=== PATIENT | female | born 1980 | race Caucasian/White ===

== ENCOUNTER 2018-08-09 14:08 | Inpatient (IN) ==
[2018-08-09] MEDS ORDERED: NORMAL SALINE 1,000 ML IV ONE (14:16)
[2018-08-09] MEDS ORDERED: PROMETHAZINE HCL 25 MG SUPP.RECT RC SCH (14:30)
[2018-08-09 15:42] LABS: Hemoglobin 10.6 gm/dL (12.5-16.0); Mean Cell Volume 71.7 fl (78-100); Mean Corpuscular Hemoglobin 21.1 pg (27-31); Mean Corpuscular Hgb Conc 29.4 g/dl (32-36); Mean Platelet Volume 9.8 fl (8-12.5); Neutrophil # 14.2 K/mm3 (1.3-6.0); Neutrophil % 79.4 % (42-75.0); Platelet Count 355 K/mm3 (150-450); Red Blood Count 5.02 M/mm3 (4.2-5.4); White Blood Count 17.9 K/mm3 (4.0-10.5)
[2018-08-09 16:12] LABS: Albumin * 3.6 gm/dl (3.4-5.0); BUN/Creatinine Ratio 13.6 (9.0-21.6); Bilirubin, Total 0.3 mg/dL (0.0-1.1); Ca. Corrected For Albumin 9.3 mg/dL (8.4-10.2); Calcium * 9.3 mg/dL (7.9-10.9); Carbon Dioxide 28.3 mmol/L (24-32.6); Potassium 4.3 mmol/L (3.4-4.6)
--- NOTE | 2018-08-09 16:26 | ANES ---
Anesthesia Procedure Note Procedure Note: ANESTHESIA PROCEDURE NOTE Date of Procedure: 08/09/2018. Time of procedure: 1610. Performed by: Abhi Marie CRNA Insurance Claims Clerk: None. Preprocedure diagnosis: Difficult IV access. Post procedure diagnosis: Same. Procedure: Attempted Peripheral vein IV insertion. Indications: This is a 37-year-old female who is in need of IV access. Findings: See below. Details of the procedure: With ultrasound guidance Skin over the intended target site was cleansed with alcohol. A 22-gauge IV catheter was inserted into a right forearm vein. Could not however thread the catheter into the vein. Another attempt was made at left forearm vein without success. EBL: Minimal. Fluids: N/A. Specimen: N/A. Post procedure condition: The patient tolerated the procedure well. No complications were noted. Thank you for this consultation. Abhi Marie CRNA
--- NOTE | 2018-08-09 17:31 | ANES ---
Anesthesia Procedure Note Procedure Note: ANESTHESIA PROCEDURE NOTE Date of Procedure: [08/09/2018 Time of procedure: 1645. Performed by: RODOLFO Florian CRNA, MSN Preprocedure diagnosis: Colitis, lack of venous access. Post procedure diagnosis: Same. Procedure: Venipuncture for IV access. Indications: Colitis, lack of IV access. Findings: Ms. Vernon has a long history of difficult venous access. She presents today with colitis requiring antibiotic therapy. Previous attempts with ultrasound-guided venous access were unsuccessful earlier. After warming her extremities, very little potential access sites were noted. With the use of a lighted vein finder there appeared to be adequate vein in the left foot. Details of the procedure: The patient was prepped with Betadine and alcohol, 0.1 mL of 1% lidocaine solution was injected at the intended IV site. A #24-gauge IV was initiated, flushed and secured. EBL: Minimal. Fluids: N/A. Specimen: N/A. Post procedure condition: The patient tolerated the procedure well. No complications were noted. Thank you for this consultation. Reji Bowens CRNA, ARNP, MSN
[2018-08-09] MEDS: HYDROmorphone HCL 1 MG/ML DISP.SYRIN IV PRN ×3 (17:38→23:54)
[2018-08-09] MEDS: ONDANSETRON HCL/PF 2 MG/ML VIAL IV SCH ×2 (17:40→23:48)
[2018-08-09] MEDS: diphenhydrAMINE HCL 50 MG/ML VIAL IV SCH ×2 (17:43→23:45)
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
--- NOTE | 2018-08-09 19:44 | OR ---
Operative Report - Dictated Report Narrative: Date of Service:08/09/18 Procedure: Right internal jugular central venous line Pre-procedure diagnosis: Need for IV access Post-procedure diagnosis: Same Surgeon: Dr. Josi Miles Anesthesia: Local Indication for procedure: Monique is a very pleasant 37-year-old female with Crohn's disease, who has very poor IV access. A PICC line was attempted earlier which was unsuccessful. Multiple peripheral IVs have been attempted which were unsuccessful. Description of procedure: After appropriate informed consent was obtained the patient was prepped and draped in the usual sterile fashion. Ultrasound guidance was used to visualize the right internal jugular vein. This was adjacent to the common carotid artery which was noncompressible. Local anesthetic was injected. A Cook needle was inserted, blood was aspirated however the wire would not thread through the Cook needle. The Cook needle was removed, and a larger Cook needle was used. The wire threaded easily. The Seldinger technique was used. A small skin neck was made adjacent to the wire. The dilator sheath was placed over the wire. The catheter had been previously flushed, was then placed over the wire using the Seldinger technique. It threaded easily. It was placed to 18 cm. It was completely removed. Needleless ports were placed on the end of each port site. Each of the ports was aspirated and flushed. They flushed easily. The line was sutured in place using the butterfly device. The skin was cleansed and a Tegaderm was applied. Complications: none Specimens to pathology: none Estimated blood loss: Minimal Disposition: Await chest x-ray
[2018-08-09 20:31] LABS: Urine Bilirubin Negative (NEGATIVE); Urine Blood Negative /ul (NEGATIVE); Urine Ketone Negative (NEGATIVE); Urine Nitrite Negative (NEGATIVE); Urine Protein Negative (NEGATIVE); Urine Urobilinogen Normal (NORMAL)
[2018-08-09 20:43] LABS: Urine Appearance Clear (CLEAR); Urine Color Pale Yellow
[2018-08-09 20:44] LABS: Urine Bacteria None Seen; Urine Hyaline Cast 0-5 /LPF; Urine RBC None Seen /hpf (0-5); Urine WBC None Seen /hpf (0-5)
[2018-08-09] MEDS ORDERED: HEPARIN SOD.,PORCINE 100 UNITS/ML IV SCH (20:45)
[2018-08-09] MEDS: MEROPENEM 1 GM in NORMAL SALINE 100 ML IV SCH (20:57)
[2018-08-09] MEDS: SACCHAROMYCES BOULARDII 250 MG CAPSULE PO SCH (21:02)
[2018-08-09] MEDS: chlorproMAZINE HCL 10 MG in NORMAL SALINE 50 ML IV SCH ×3 (21:07→23:52)
[2018-08-09] MEDS: METHYLPREDNISOLONE SOD SUCC/PF 40 MG/ML VIAL IV SCH (21:23)
[2018-08-09] MEDS: POTASSIUM CHLORIDE 10 MEQ in NORMAL SALINE 1,000 ML IV SCH (21:32)
[2018-08-10] MEDS: MEROPENEM 1 GM in NORMAL SALINE 100 ML IV SCH ×3 (02:22→16:52)
[2018-08-10] MEDS: HYDROmorphone HCL 1 MG/ML DISP.SYRIN IV PRN ×9 (02:28→21:53)
[2018-08-10] MEDS: diphenhydrAMINE HCL 50 MG/ML VIAL IV SCH ×4 (04:25→21:58)
[2018-08-10] MEDS: ONDANSETRON HCL/PF 2 MG/ML VIAL IV SCH ×4 (04:27→22:05)
[2018-08-10] MEDS: METHYLPREDNISOLONE SOD SUCC/PF 40 MG/ML VIAL IV SCH ×2 (04:35→15:02)
[2018-08-10] MEDS: chlorproMAZINE HCL 10 MG in NORMAL SALINE 50 ML IV SCH (04:37)
[2018-08-10 05:51] LABS: Hematocrit 33.7 % (37.0-47.0); Mean Cell Volume 71.1 fl (78-100); Mean Corpuscular Hemoglobin 21.1 pg (27-31); Mean Corpuscular Hgb Conc 29.7 g/dl (32-36); Mean Platelet Volume 10.1 fl (8-12.5); Neutrophil % 93.2 % (42-75.0); Platelet Count 359 K/mm3 (150-450); Red Blood Count 4.74 M/mm3 (4.2-5.4); Red Cell Distribution Width 17.9 % (11.5-14.0); White Blood Count 11.8 K/mm3 (4.0-10.5)
[2018-08-10 06:14] LABS: Albumin * 3.2 gm/dl (3.4-5.0); Anion Gap 16.6 mmol/L (6.8-13.8); BUN/Creatinine Ratio 15.1 (9.0-21.6); Bilirubin, Total 0.3 mg/dL (0.0-1.1); Ca. Corrected For Albumin 9.1 mg/dL (8.4-10.2); Calcium * 8.8 mg/dL (7.9-10.9); Carbon Dioxide 22.3 mmol/L (24-32.6); Potassium 4.9 mmol/L (3.4-4.6)
[2018-08-10] MEDS: chlorproMAZINE HCL 20 MG in NORMAL SALINE 50 ML IV SCH ×5 (07:28→23:01)
[2018-08-10] MEDS: POTASSIUM CHLORIDE 10 MEQ in NORMAL SALINE 1,000 ML IV SCH ×2 (07:58→18:42)
[2018-08-10] MEDS: SACCHAROMYCES BOULARDII 250 MG CAPSULE PO SCH ×2 (10:10→21:55)
[2018-08-10] MEDS: HEPARIN SOD.,PORCINE 100 UNITS/ML IV SCH ×2 (10:15→21:55)
--- NOTE | 2018-08-10 12:08 | PN ---
Subjective - Date and Time Seen Date: 08/10/18 Time: 06:45 Subjective Narrative: Patient has not vomited since yesterday evening. She is having dry heaving still, the most recently an hour ago. Her abdominal pain is about the same. There is still bright red blood in her bowel movement. There has been no hematemesis. Overall feet she feels somewhat better now. Objective - Review of Systems Generalized/Overall Review: Reports: Weakness, Malaise EENTM: Denies: Eye Pain, Blurred Vision Respiratory: Denies: Cough, Shortness of Breath Cardiac: Denies: Chest Pain, Edema Abdominal: Reports: Nausea, Vomiting, Abdominal Pain, Diarrhea, Bright blood from rectum Genitourinary Symptoms: Denies: Burning, Urgency Musculoskeletal Complaints: Denies: Joint Pain, Back Pain Neurological: Reports: Anxiety, Depressed. Denies: Headache Skin: Denies: Dryness, Lesions, Rash Endocrine: Denies: Intolerance to Cold, Intolerance to Heat Misc: All systems neg except as marked - Vitals Vitals: Last Vital Signs Temp 36.8 C 08/10/18 10:49 Pulse 69 08/10/18 10:49 Resp 16 08/10/18 10:49 BP 123/61 08/10/18 10:49 Pulse Ox 96 08/10/18 10:49 - Abnormal Lab Findings Abnormal Lab Findings: Abnormal Lab Results 08/09/18 08/09/18 08/09/18 Range/Units 15:30 15:30 19:40 WBC 17.9 H (4.0-10.5) K/mm3 Hgb 10.6 L (12.5-16.0) gm/dL Hct 36.0 L (37.0-47.0) % MCV 71.7 L (78-100) fl MCH 21.1 L (27-31) pg MCHC 29.4 L (32-36) g/dl RDW 18.0 H (11.5-14.0) % Immature Gran % (Auto) 1.80 H (0.001-0.429) % Immature Gran # (Auto) 0.32 H (0.000-0.0310) K/mm3 Neutrophils % 79.4 H (42-75.0) % Lymphocytes % 8.3 L (20-51) % Neutrophils # 14.2 H (1.3-6.0) K/mm3 Lymphocytes # 1.48 L (1.5-3.5) k/mm3 Monocytes # 1.5 H (0.0-1.0) k/mm3 Potassium (3.4-4.6) mmol/L Carbon Dioxide (24-32.6) mmol/L Anion Gap 14.0 H (6.8-13.8) mmol/L Random Glucose (70-110) mg/dL Albumin (3.4-5.0) gm/dl Urine pH 8.0 H (5.0-7.0) pH Hyaline Casts 0-5 H (NONE) /LPF 08/10/18 08/10/18 Range/Units 05:40 05:40 WBC 11.8 H D (4.0-10.5) K/mm3 Hgb 10.0 L (12.5-16.0) gm/dL Hct 33.7 L (37.0-47.0) % MCV 71.1 L (78-100) fl MCH 21.1 L (27-31) pg MCHC 29.7 L (32-36) g/dl RDW 17.9 H (11.5-14.0) % Immature Gran % (Auto) 0.80 H (0.001-0.429) % Immature Gran # (Auto) 0.10 H (0.000-0.0310) K/mm3 Neutrophils % 93.2 H (42-75.0) % Lymphocytes % 5.1 L (20-51) % Neutrophils # 11.0 H (1.3-6.0) K/mm3 Lymphocytes # 0.60 L (1.5-3.5) k/mm3 Monocytes # (0.0-1.0) k/mm3 Potassium 4.9 H (3.4-4.6) mmol/L Carbon Dioxide 22.3 L (24-32.6) mmol/L Anion Gap 16.6 H (6.8-13.8) mmol/L Random Glucose 149 H D (70-110) mg/dL Albumin 3.2 L (3.4-5.0) gm/dl Urine pH (5.0-7.0) pH Hyaline Casts (NONE) /LPF - Exam Constitutional: Present: Alert, Oriented x3, Cooperative, Well developed, Well nourished ENT Exam: Present: normal ENT inspection, hearing grossly normal Neck: Present: non-tender, full range of motion, normal inspection. Absent: lymphadenopathy (R), lymphadenopathy (L), thyromegaly Breasts: Present: Exam deferred Respiratory: Present: lungs clear, no respiratory distress Cardiovascular/Chest: Present: normal peripheral pulses, regular rate, rhythm, no chest tenderness, no edema, no gallop, no JVD, no murmur Abdomen: Present: Normal bowel sounds, soft, no hepatospenomegaly, no masses, tender, guarding, rebound tenderness. Absent: rigidity /Rectal: Present: Exam deferred Extremity: Present: normal range of motion, non-tender, normal inspection, no calf tenderness Skin Exam: Present: normal color, warm/dry, no cyanosis Lymphatic: Present: no adenopathy Neurologic: Present: abnormal gait, motor weakness Appearance: Present: appropriate appearance, appropriate insight, neat, no memory impairment Eye contact: Present: cooperative, good eye contact, normal speech Thoughts: Present: normal thought pattern Assessment/Plan Plan Narrative: Her lab work shows marked improvement from yesterday. Her hemoglobin has dropped about 2 g, consistent with her earlier diagnosis of dehydration. Her white blood count has dropped. Her wound looks somewhat better today. Dr. Miles obtained IV access through a central line last evening. She has had no side effects to the chlorpromazine. We started with a very low dose, but because she still retching we will increase the dose from 10-20 mg. I have been considering a referral to the [facility], but have thus far not because she had been getting better. We will continue current IV fluids and IV medications. We will repeat blood work in the morning. If I decide she needs a referral to the [place], I will discuss that with her tomorrow morning. If things change before that, we will address that change. - Problems/Diagnosis (1) Abdominal pain Problem: Acute (2) Crohn's colitis Problem: Chronic Qualifiers: Digestive disease complication type: unspecified complication Qualified Code(s): K50.119 - Crohn's disease of large intestine with unspecified complications (3) Vomiting Problem: Acute Qualifiers: Vomiting type: unspecified Vomiting Intractability: intractable Nausea presence: with nausea Qualified Code(s): R11.2 - Nausea with vomiting, unspecified (4) Dehydration Problem: Acute (5) Difficult intravenous access Problem: Acute (6) Failure of outpatient treatment Problem: Acute (7) Hematochezia Problem: Acute (8) Diarrhea Problem: Chronic Qualifiers: (9) Open wound anterior abdominal wall Problem: Chronic Qualifiers: Encounter type: subsequent encounter Qualified Code(s): S31.109D - Unspecified open wound of abdominal wall, unspecified quadrant without penetration into peritoneal cavity, subsequent encounter (10) Wound infection after surgery Problem: Acute (11) History of staph infection Problem: Chronic
--- NOTE | 2018-08-10 12:09 | PN ---
Progess Note - Interim Date: 08/10/18 Time: 12:08 Narrative: 08/10/18 12:[address] Miles and I spoke directly. She was concerned about mesh infection, which I think is very reasonable. She was also concerned about a fistula. We have not seen her on either CAT scan, but that also very reasonable. This weighs me more in the direction of discussing with her tomorrow referral to the [facility].
[2018-08-10] MEDS ORDERED: metroNIDAZOLE/SODIUM CHLORIDE 500 MG/100 ML BAG IV SCH (15:15)
[2018-08-10] MEDS: VANCOMYCIN HCL 1.25 GM in DEXTROSE 5 % IN WATER 250 ML IV SCH ×2 (17:24)
--- NOTE | 2018-08-10 17:53 | PN ---
Tran Note - Interim Date: 08/10/18 Time: 17:52 Narrative: 08/10/18 17:52 I just completed a 20 minute conversation with Monique, her sister and her spouse. Please see previous notes, where I mentioned referral to a higher level of care, and that she may actually require multispecialty care. The concern at the present time is mesh infection or even a intra-abdominal fistula. All other questions were answered to their satisfaction. The plan will be to work on referral tomorrow morning. She like to try clear liquids. She has no vomiting whatsoever today. We will start clear liquids.
[2018-08-11] MEDS: HYDROmorphone HCL 1 MG/ML DISP.SYRIN IV PRN ×9 (00:30→21:56)
[2018-08-11] MEDS: MEROPENEM 1 GM in NORMAL SALINE 100 ML IV SCH ×3 (00:31→16:34)
[2018-08-11] MEDS: chlorproMAZINE HCL 20 MG in NORMAL SALINE 50 ML IV SCH ×6 (03:22→22:15)
[2018-08-11] MEDS: diphenhydrAMINE HCL 50 MG/ML VIAL IV SCH ×4 (03:26→21:57)
[2018-08-11] MEDS: METHYLPREDNISOLONE SOD SUCC/PF 40 MG/ML VIAL IV SCH ×2 (03:29→16:26)
[2018-08-11] MEDS: ONDANSETRON HCL/PF 2 MG/ML VIAL IV SCH ×4 (03:32→21:59)
[2018-08-11] MEDS: POTASSIUM CHLORIDE 10 MEQ in NORMAL SALINE 1,000 ML IV SCH (04:59)
[2018-08-11] MEDS: VANCOMYCIN HCL 1.25 GM in DEXTROSE 5 % IN WATER 250 ML IV SCH ×4 (05:00→17:44)
[2018-08-11] MEDS ORDERED: NORMAL SALINE 1,000 ML IV SCH (06:17)
--- NOTE | 2018-08-11 06:41 | PN ---
Subjective - Date and Time Seen Date: 08/11/18 Time: 06:35 Subjective Narrative: Patient has not vomited since the night before last. She is taking clear liquids well, but this morning she backed off of that because she became nauseated. Her abdominal pain is about the same. There is still bright red blood in her bowel movement. There has been no hematemesis. Overall feet she feels about the same now. I saw her this morning with Ketty from case management. She denies fever chills or sweats. She uses IV Dilaudid about every 2 hours. She rates her pain with that medication 5-8. The pain is from her abdomen, mostly midline and somewhat to the right. Objective - Review of Systems Generalized/Overall Review: Reports: Malaise EENTM: Denies: Eye Pain, Blurred Vision Respiratory: Denies: Cough, Shortness of Breath Cardiac: Denies: Chest Pain, Edema Abdominal: Reports: Nausea, Abdominal Pain, Diarrhea, Bright blood from rectum Genitourinary Symptoms: Denies: Burning, Urgency Musculoskeletal Complaints: Denies: Joint Pain, Back Pain Neurological: Reports: Depressed. Denies: Headache, Anxiety Skin: Denies: Dryness, Lesions, Rash Endocrine: Denies: Intolerance to Cold, Intolerance to Heat Misc: All systems neg except as marked - Vitals Vitals: Last Vital Signs Temp 36.6 C 08/11/18 03:00 Pulse 95 08/11/18 03:00 Resp 16 08/11/18 03:00 BP 152/82 H 08/11/18 03:00 Pulse Ox 98 08/11/18 03:00 - Exam Constitutional: Present: Alert, Oriented x3, Cooperative, Well developed, Well nourished, No distress ENT Exam: Present: normal ENT inspection, hearing grossly normal Neck: Present: normal inspection. Absent: limited range of motion, thyromegaly Breasts: Present: Exam deferred Respiratory: Absent: lungs clear, respiratory distress Cardiovascular/Chest: Present: regular rate, rhythm, no gallop, no JVD, no murmur, edema - Trace edema both lower extremities Abdomen: Present: Normal bowel sounds, soft, no rebound tenderness, no hepatospenomegaly, no masses, guarding, other - Open abdominal wound looks about the same. /Rectal: Present: Exam deferred Extremity: Present: normal range of motion, normal inspection, no calf tenderness Skin Exam: Present: normal color, warm/dry, no cyanosis Lymphatic: Present: no adenopathy Neurologic: Present: depressed affect. Absent: motor weakness Appearance: Present: appropriate appearance, appropriate insight, neat, no memory impairment Eye contact: Present: cooperative, good eye contact, normal speech Thoughts: Present: normal thought pattern Assessment/Plan Plan Narrative: Blood pressure has gone up slightly. She has a positive fluid balance she's taking oral well. We will cut back on the IV fluid rate. Potassium slightly high yesterday we will remove the potassium from IV. Otherwise we will continue her current treatment. We will now begin looking for a higher level of care transfer. We need at least a flight kitchen manager to cares for Crohn's patients and a surgeon who was familiar with Crohn's related surgeries. I discussed this again with the patient and she agrees. I also discussed it with her and her family last night. - Problems/Diagnosis (1) Abdominal pain Problem: Acute (2) Crohn's colitis Problem: Chronic Qualifiers: Digestive disease complication type: unspecified complication Qualified Code(s): K50.119 - Crohn's disease of large intestine with unspecified complications (3) Vomiting Problem: Acute Qualifiers: Vomiting type: unspecified Vomiting Intractability: intractable Nausea presence: with nausea Qualified Code(s): R11.2 - Nausea with vomiting, unspecified (4) Dehydration Problem: Acute (5) Difficult intravenous access Problem: Acute (6) Failure of outpatient treatment Problem: Acute (7) Hematochezia Problem: Acute (8) Diarrhea Problem: Chronic Qualifiers: (9) Open wound anterior abdominal wall Problem: Chronic Qualifiers: Encounter type: subsequent encounter Qualified Code(s): S31.109D - Unspecified open wound of abdominal wall, unspecified quadrant without penetration into peritoneal cavity, subsequent encounter (10) Wound infection after surgery Problem: Acute (11) History of staph infection Problem: Chronic
[2018-08-11] MEDS ORDERED: NORMAL SALINE 1,000 ML IV PRN (06:45)
[2018-08-11 07:18] LABS: Hematocrit 31.5 % (37.0-47.0); Hemoglobin 9.6 gm/dL (12.5-16.0); Mean Cell Volume 70.9 fl (78-100); Mean Corpuscular Hemoglobin 21.6 pg (27-31); Mean Corpuscular Hgb Conc 30.5 g/dl (32-36); Mean Platelet Volume 10.2 fl (8-12.5); Platelet Count 331 K/mm3 (150-450); Red Blood Count 4.44 M/mm3 (4.2-5.4); Red Cell Distribution Width 18.1 % (11.5-14.0); White Blood Count 25.2 K/mm3 (4.0-10.5)
[2018-08-11 07:26] LABS: Total Cells Counted 100
[2018-08-11 07:33] LABS: Band 2 % (0-2.0); Dohle Bodies 2+; Hypochromia 1+; Immature Granulocyte 1 (0-1); Lymphocyte 4 % (20-51); Monocyte 1 % (0-9); Neutrophil 92 % (42-75); Neutrophil # 23.2 K/mm3 (1.3-6.0); Platelet Estimate Normal (NORMAL)
[2018-08-11 07:39] LABS: Albumin * 3.2 gm/dl (3.4-5.0); Anion Gap 10.9 mmol/L (6.8-13.8); BUN/Creatinine Ratio 14.4 (9.0-21.6); Bilirubin, Total 0.2 mg/dL (0.0-1.1); Ca. Corrected For Albumin 9.1 mg/dL (8.4-10.2); Calcium * 8.8 mg/dL (7.9-10.9); Carbon Dioxide 27.6 mmol/L (24-32.6); Potassium 4.5 mmol/L (3.4-4.6); Total Protein 6.8 gm/dL (6.2-8.2)
[2018-08-11] MEDS: SACCHAROMYCES BOULARDII 250 MG CAPSULE PO SCH ×2 (09:31→21:56)
[2018-08-11] MEDS: HEPARIN SOD.,PORCINE 100 UNITS/ML IV SCH ×2 (09:40→21:57)
[2018-08-12] MEDS: chlorproMAZINE HCL 20 MG in NORMAL SALINE 50 ML IV SCH ×3 (02:05→12:10)
[2018-08-12] MEDS: MEROPENEM 1 GM in NORMAL SALINE 100 ML IV SCH ×2 (02:05→09:51)
[2018-08-12] MEDS: HYDROmorphone HCL 1 MG/ML DISP.SYRIN IV PRN ×5 (02:12→12:35)
[2018-08-12] MEDS: diphenhydrAMINE HCL 50 MG/ML VIAL IV SCH ×2 (04:29→09:43)
[2018-08-12] MEDS ORDERED: VANCOMYCIN HCL LEVEL XX ONE (04:30)
[2018-08-12] MEDS: METHYLPREDNISOLONE SOD SUCC/PF 40 MG/ML VIAL IV SCH (04:30)
[2018-08-12] MEDS: ONDANSETRON HCL/PF 2 MG/ML VIAL IV SCH ×2 (04:32→09:38)
[2018-08-12] MEDS: VANCOMYCIN HCL 1.25 GM in DEXTROSE 5 % IN WATER 250 ML IV SCH ×2 (05:18)
--- NOTE | 2018-08-12 07:38 | PN ---
Subjective - Date and Time Seen Date: 08/12/18 Time: 06:00 Subjective Narrative: Patient has not vomited since 2 nights ago. She is taking clear liquids well. Her abdominal pain is about the same. There is less bright red blood in her bowel movement. She has similar amounts of bleeding in the past due to her Crohn's. There has been no hematemesis. Overall feet she feels about the same now, though she admits that this morning her abdomen is less tight. She denies fever chills or sweats. She uses IV Dilaudid about every 2 hours. She rates her pain with that medication 5-8. The pain is from her abdomen, mostly midline and somewhat to the right. I spoke with the [facility] people late yesterday afternoon. They said she definitely needs to be there, but they don't have a bed. They will let us know when they do, and they asked us to call them if she gets worse. Objective Objective Narrative: Her wound grew staph aureus, but not MRSA. - Review of Systems Generalized/Overall Review: Reports: Malaise, Fatigue EENTM: Denies: Eye Pain, Blurred Vision Respiratory: Denies: Cough, Shortness of Breath Cardiac: Denies: Chest Pain, Edema Abdominal: Reports: Nausea, Abdominal Pain, Diarrhea, Bright blood from rectum, Other - Open abdominal wound. Denies: Vomiting, Hematemesis Genitourinary Symptoms: Denies: Burning, Urgency Musculoskeletal Complaints: Denies: Joint Pain, Back Pain Neurological: Reports: Depressed. Denies: Headache Skin: Denies: Dryness, Lesions, Rash Endocrine: Denies: Intolerance to Cold, Intolerance to Heat Misc: All systems neg except as marked - Vitals Vitals: Last Vital Signs Temp 37.2 C 08/12/18 06:00 Pulse 100 08/12/18 06:00 Resp 18 08/12/18 06:00 BP 157/87 H 08/12/18 06:00 Pulse Ox 98 08/12/18 06:00 - Abnormal Lab Findings Abnormal Lab Findings: Abnormal Lab Results 08/11/18 08/11/18 08/12/18 Range/Units 07:10 07:10 04:29 Neutrophils % (Manual) 92 H (42-75) % Lymphocytes % (Manual) 4 L (20-51) % Neutrophils # (Manual) 23.2 H (1.3-6.0) K/mm3 Lymphocytes # (Manual) 1.0 L (1.5-3.5) k/mm3 Albumin 3.2 L (3.4-5.0) gm/dl Vancomycin Trough 7.5 L (10.0-20.0) mcg/mL - Exam Constitutional: Present: Alert, Oriented x3, Cooperative, Well developed, Well nourished, No distress ENT Exam: Present: normal ENT inspection, hearing grossly normal Neck: Present: non-tender, supple, normal inspection. Absent: lymphadenopathy (R), lymphadenopathy (L), thyromegaly Breasts: Present: Exam deferred Respiratory: Present: lungs clear, no respiratory distress Cardiovascular/Chest: Present: regular rate, rhythm, no gallop, no JVD, no murmur Abdomen: Present: Normal bowel sounds, soft, no rebound tenderness, no hepatospenomegaly, no masses, tender, guarding, other - Abdominal wound is about the same size. There is no purulence there. Wound bed is red. No surrounding erythema., distended /Rectal: Present: Exam deferred Extremity: Present: normal inspection, no pedal edema, no calf tenderness Skin Exam: Present: normal color, warm/dry, no cyanosis Lymphatic: Present: no adenopathy Neurologic: Absent: abnormal gait, motor weakness Appearance: Present: appropriate appearance, appropriate insight, neat, no memory impairment Eye contact: Present: cooperative, good eye contact, normal speech Thoughts: Present: normal thought pattern, other - Looks a little down Assessment/Plan Plan Narrative: Wound grew staph aureus. We will continue the same antibiotics. We will otherwise continue the same medications. Her labs were fairly good yesterday except for a white count of 25,000. I d iscussed this with telemetry. This is most likely due to her Crohn's. We will repeat her lab work this morning and tomorrow morning. We will transfer her if [facility] calls and says they have a bed. If she is worse we will call [facility] in. The meantime we will see if there is another hospital elsewhere that could take her in transfer. - Problems/Diagnosis (1) Abdominal pain Problem: Acute (2) Crohn's colitis Problem: Chronic Qualifiers: Digestive disease complication type: unspecified complication Qualified Code(s): K50.119 - Crohn's disease of large intestine with unspecified complications (3) Vomiting Problem: Acute Qualifiers: Vomiting type: unspecified Vomiting Intractability: intractable Nausea presence: with nausea Qualified Code(s): R11.2 - Nausea with vomiting, unspecified (4) Dehydration Problem: Resolved (5) Difficult intravenous access Problem: Resolved (6) Failure of outpatient treatment Problem: Acute (7) Hematochezia Problem: Acute (8) Diarrhea Problem: Chronic Qualifiers: (9) Open wound anterior abdominal wall Problem: Chronic Qualifiers: Encounter type: subsequent encounter Qualified Code(s): S31.109D - Unspecified open wound of abdominal wall, unspecified quadrant without penetration into peritoneal cavity, subsequent encounter (10) Wound infection after surgery Problem: Acute Narrative: Staph aureus (11) History of staph infection Problem: Chronic
[2018-08-12 07:56] LABS: Hematocrit 32.7 % (37.0-47.0); Hemoglobin 9.8 gm/dL (12.5-16.0); Mean Cell Volume 70.8 fl (78-100); Mean Corpuscular Hemoglobin 21.2 pg (27-31); Neutrophil # 16.7 K/mm3 (1.3-6.0); Neutrophil % 91.2 % (42-75.0); Platelet Count 300 K/mm3 (150-450); Red Blood Count 4.62 M/mm3 (4.2-5.4); Red Cell Distribution Width 18.2 % (11.5-14.0); White Blood Count 18.3 K/mm3 (4.0-10.5)
[2018-08-12 08:10] LABS: Albumin * 3.3 gm/dl (3.4-5.0); Anion Gap 11.3 mmol/L (6.8-13.8); BUN/Creatinine Ratio 16.9 (9.0-21.6); Bilirubin, Total 0.2 mg/dL (0.0-1.1); Ca. Corrected For Albumin 8.7 mg/dL (8.4-10.2); Calcium * 8.5 mg/dL (7.9-10.9); Carbon Dioxide 27.4 mmol/L (24-32.6); Potassium 3.7 mmol/L (3.4-4.6)
[2018-08-12] MEDS: SACCHAROMYCES BOULARDII 250 MG CAPSULE PO SCH (09:50)
[2018-08-12] MEDS: HEPARIN SOD.,PORCINE 100 UNITS/ML IV SCH (09:50)
--- NOTE | 2018-08-12 12:14 | DS ---
Transfer Discharge Summary - Diagnosis(s)/Problems (1) Abdominal pain Problem: Acute (2) Crohn's colitis Problem: Chronic (3) Vomiting Problem: Acute (4) Dehydration Problem: Resolved (5) Difficult intravenous access Problem: Resolved (6) Failure of outpatient treatment Problem: Acute (7) Hematochezia Problem: Acute (8) Diarrhea Problem: Chronic (9) Open wound anterior abdominal wall Narrative: Now growing staph aureus Problem: Chronic (10) Wound infection after surgery Problem: Acute (11) History of staph infection Problem: Chronic - Course Description of Stay: Following admission she was rehydrated with intravenous fluids. She was given medication for nausea and for pain Blood cultures and a wound culture were obtained at admission. The blood cultures didn't grow anything. The wound culture recently was reported out as staph aureus. At admission we started IV Merrem and IV Solu-Medrol. Subsequently, I had a conversation with our pharmacist who recommended the addition of Flagyl. After the first dose, I had another conversation with the pharmacist who had researched the antibiotic choices, and decided that Merrem was enough. Because of the history of staph, again after discussing with the pharmacist, we added vancomycin. Following the final wound culture and sensitivity, we also stopped the vancomycin. Her plain abdominal x-ray did not show anything worrisome. Her initial blood work showed that she was dehydrated, and this was corrected. Yesterday her white blood count went up to 25,000, which I attributed to the steroids. Today it is better about 18,000. The mild bright red hematochezia she had at admission, is a little better today. She did not vomit while in the hospital, but had a lot of dry retching. She is now taking clear fluids well without retching. She is still somewhat nauseated. At the time of discharge her abdomen is a little less distended and a little less tender. We had poor venous access, so I requested our surgeon to consider a central line. She placed a right subclavian. She and I also had a discussion about the whole situation, and we agreed it would be best to transfer her to a higher level of care. We began researching the possible receiving hospitals yesterday. She and I were both concerned about the possibility of mesh infection or even possibly a fistula. This morning I spoke by phone with Dr. Yasir Lopez at [facility] in the [facility]. I described the situation and he agreed to accept the patient in transfer. We will send all clinical information including lab studies, imaging reports and images, as well as that same kind of information from her last admission, with her as she goes to the [facility]. Consultation Done:: Dr. Josi Miles Procedures Performed: see notes below - right subclavian catheter done by Dr. Miles - Results and Findings Results and Findings: Laboratory Results - last 24 hr 08/12/18 08/12/18 08/12/18 04:29 07:38 07:38 WBC 18.3 H D RBC 4.62 Hgb 9.8 L Hct 32.7 L MCV 70.8 L MCH 21.2 L MCHC 30.0 L RDW 18.2 H Plt Count 300 MPV 10.0 Immature Gran % (Auto) 1.90 H Immature Gran # (Auto) 0.35 H Neutrophils % 91.2 H Lymphocytes % 3.3 L Monocytes % 3.5 Eosinophils % 0.0 Basophils % 0.1 Nucleated RBC % 0.0 Neutrophils # 16.7 H Lymphocytes # 0.60 L Monocytes # 0.7 Eosinophils # 0.0 Absolute Basophils 0.0 Sodium 139 Plasma Sodium 139 Potassium 3.7 Chloride 104 Carbon Dioxide 27.4 Anion Gap 11.3 BUN 13 Creatinine 0.77 Est GFR (Non-Af Amer) 90 D BUN/Creatinine Ratio 16.9 Random Glucose 105 Calcium 8.5 Calcium Adj for Albumin 8.7 Total Bilirubin 0.2 AST 12 ALT 22 Alkaline Phosphatase 107 Total Protein 7.0 Albumin 3.3 L Vancomycin Trough 7.5 L - Medications Medications: Active Medications Diphenhydramine HCl (Benadryl) 25 mg IV Q6H [facility] Stop: 09/08/18 16:01 Last Admin: 08/12/18 09:43 Dose: 25 mg Documented by: Heparin Sodium (Beef Lung) (Heparin Lock Flush Syringe) 500 units IV BID [facility] Stop: 09/09/18 09:01 Last Admin: 08/12/18 09:50 Dose: 500 units Documented by: Hydromorphone HCl (Dilaudid) 1 mg IV Q2H PRN PRN Reason: Pain Stop: 09/08/18 14:17 Last Admin: 08/12/18 09:39 Dose: 1 mg Documented by: Meropenem 1 gm/ Sodium (Chloride) 100 mls @ 200 mls/hr IV Q8H [facility]; Protocol Stop: 09/08/18 17:01 Last Admin: 08/12/18 09:51 Dose: 200 mls/hr Documented by: Chlorpromazine HCl 20 mg/ (Sodium Chloride) 50.8 mls @ 300 mls/hr IV Q4H [facility] Stop: 09/09/18 07:01 Last Infusion: 08/12/18 07:56 Dose: Infused Documented by: Sodium Chloride (Sodium Chloride 0.9%) 1,000 mls @ 10 mls/hr IV .Q24H PRN PRN Reason: HYDRATION Stop: 09/10/18 06:18 Last Admin: 08/11/18 06:53 Dose: 10 mls/hr Documented by: Methylprednisolone Sodium Succinate (Solu-Medrol) 40 mg IV Q12H [facility] Stop: 09/08/18 16:01 Last Admin: 08/12/18 04:30 Dose: 40 mg Documented by: Ondansetron HCl (Zofran) 8 mg IV Q6H [facility] Stop: 09/08/18 16:31 Last Admin: 08/12/18 09:38 Dose: 8 mg Documented by: Saccharomyces Boulardii (Florastor) 250 mg PO BID [facility] Stop: 09/08/18 17:01 Last Admin: 08/12/18 09:50 Dose: 250 mg Documented by: Discontinued Medications Heparin Sodium (Beef Lung) (Heparin Lock Flush Syringe) 500 units IV Q12H [facility] Stop: 09/08/18 20:46 Last Admin: 08/09/18 23:45 Dose: 500 units Documented by: Potassium Chloride 10 meq/ (Sodium Chloride) 1,005 mls @ 100 mls/hr IV .Q10H3M [facility] Stop: 09/08/18 17:01 Last Infusion: 08/11/18 06:50 Dose: 100 mls/hr Documented by: Chlorpromazine HCl 10 mg/ (Sodium Chloride) 50.4 mls @ 300 mls/hr IV Q4H [facility] Stop: 09/08/18 16:46 Last Infusion: 08/10/18 04:48 Dose: Infused Documented by: Metronidazole (Flagyl) 500 mg in 100 mls @ 100 mls/hr IV Q8H [facility]; Protocol Stop: 09/09/18 15:16 Last Infusion: 08/10/18 16:37 Dose: Infused Documented by: Vancomycin HCl 1.25 gm/ (Dextrose/Water) 250 mls @ 140 mls/hr IV Q12H [facility]; Protocol Stop: 09/09/18 17:01 Last Admin: 08/12/18 05:18 Dose: 140 mls/hr Documented by: Sodium Chloride (Sodium Chloride 0.9%) 1,000 mls @ 10 mls/hr IV .Q24H [facility] Stop: 09/10/18 06:18 Last Admin: 08/11/18 06:54 Dose: Not Given Documented by: Vancomycin HCl (Vancomycin Level) 1 XX ONCE ONE Stop: 08/12/18 04:31 Last Admin: 08/12/18 05:13 Dose: 1 Documented by: - Disposition Disposition: Still a patient Condition: Fair Discharge Date: 08/12/18 Discharge Time: 12:06
[2018-08-12 12:35] VITALS: BP 153/90
--- NOTE | 2018-08-23 08:41 | PN ---
Progess Note - Interim Date: 08/23/18 Time: 08:40 Narrative: 08/23/18 08:40 Disposition: Short term acute inpatient.
== END 2018-08-12 13:23 | disposition short-term general hospital (02) | DRG 386 ==
LOC: MS
PROVIDERS: ADMIT Allergy & Immunology; ATTEND Allergy & Immunology
CPT/HCPCS: 36415; 71010; 71045; 74019; 74020; 80053; 80202; 81001; 83605; 84145; 85007; 85025; 87040; 87045; 87046; 87070; 87077; 87081; 87086; 87186; 87493; J2405

== ENCOUNTER 2019-02-09 00:02 | Observation (INO) ==
--- NOTE | 2019-02-09 00:37 | ERNOTE ---
Medical Problem HPI - General Chief Complaint: Nausea/Vomiting Time Seen by Provider: 02/09/19 00:23 Source: patient Exam Limitations: no limitations - Immun/Allergies/Home Medications Immunizations: IMMUNIZATION HX Immunizations Up to Date No History of Influenza Vaccine Yes Hx Pneumococcal Vaccination No Allergies/Adverse Reactions: Allergies baclofen Allergy (Severe, Verified 02/09/19 08:42) Hives latex Allergy (Severe, Verified 02/09/19 08:42) Anaphylaxis anaphylactic metoclopramide HCl [From Reglan] Allergy (Severe, Verified 02/09/19 08:42) Becomes violent and hallucinations prochlorperazine [From Compazine] Allergy (Severe, Verified 02/09/19 08:42) Becomes violent and hallucinations tramadol Allergy (Severe, Verified 02/09/19 08:42) Other seizure ketorolac [From Toradol] Adverse Reaction (Unknown, Verified 02/09/19 08:42) Other Patient states that her GI Doctor says she is not to have NSAIDS. IV contrast Allergy (Mild, Uncoded 02/09/19 08:42) See comment Pt states that she can tolerate IV contrast if premedicated. 08/16/18 had hives after premedications. please talk to radiology before proceeding Home Medications: HOME MEDICATIONS chlorpromazine 25 mg tablet 25 mg PO Q4H PRN #100 tab 12/09/18 [Last Taken Unknown] esomeprazole magnesium 20 mg capsule,delayed release 20 mg PO DAILY #30 cap 12/09/18 [Last Taken Unknown] ondansetron 4 mg disintegrating tablet 4 mg PO Q4H #100 tab 12/09/18 [Last Taken 02/08/19 22:00] zolpidem 10 mg tablet 10 mg PO HS PRN #30 tab 12/09/18 [Last Taken Unknown] Acetaminophen [Tylenol] 975 mg PO PRN PRN 02/09/19 [Last Taken 02/08/19 22:00] - History of Present History Narrative: Patient has history of Crohn's disease and multiple bowel obstructions. She states for the last 2 to 3 days she has not been feeling up to her normal. Today she states she began having right-sided abdominal pain nausea and intermittent fevers up to 102.4. Approximately 2 hours [employer] she took 8 mg Zofran which did not help much she also took acetaminophen 650 mg p.o. at that same time which did not help her pain much. Timing: getting worse Severity: severe Review of Systems - Review of Systems Constitutional: Present: fever, chills, fatigue, malaise EYE: Absent: vision changes Respiratory: Absent: shortness of breath Cardiology: Present: palpitations Gastrointestinal/Abdominal: Present: See HPI, nausea, vomiting, abdominal pain Musculoskeletal: Present: back pain - Especially when the fever and chills hit. Skin: Absent: rash Endocrine: Present: excessive sweating Medical History (Updated 02/09/19 @ 08:37 by Femi Key DO) History of staph infection Hx of Crohn's disease Hx of intestinal obstruction bowel obstruction removal surgery gastric surgery hx of surgical wound hx stragulated hernia Surgical History: Surgical History (Updated 08/29/18 @ 14:57 by Josi Miles DO) History of gastric surgery Hx of cholecystectomy Hx of hernia repair Hx of tubal ligation Family History: Family History (Updated 08/03/18 @ 18:54 by Marissa Waters RN) Other Adopted Social History: (Last Reviewed 02/09/19 @ 00:31 by Femi Key DO) Social History: adopted: Yes lives independently: Yes household members: spouse current occupational status: unemployed Highest education level completed: some college, no degree Service: No Tobacco: Smoking Status: Current every day smoker tobacco type: cigarettes Smoking cigarettes per day: 2 Alcohol: alcohol intake: former alcohol intake frequency: holiday/special occasion details: couple shots of philip allen a couple times a year Substance Use: substance use type: does not use Exercise: Physical activity type: other Physical Exam - Physical Exam General Appearance: Present: wd/wn, alert, moderate distress Head Exam: Present: normal inspection, no evidence of injury Neck: Present: normal inspection, nontender, supple Respiratory: Present: no respiratory distress, no accessory muscle use, chest nontender, lungs clear Cardiovascular/Chest: Present: no murmur, tachycardia Gastrointestinal/Abdominal: Present: tenderness - lower quads b/l , abnormal bowel sounds - hyperactive, guarding Back Exam: Present: normal inspection, normal range of motion Extremity Exam: Present: normal inspection, normal range of motion, no edema Neurological Exam: Present: alert, oriented, no motor/sensory deficits Skin Exam: Present: normal color, warm/dry Progress - Results and Orders Patient's Lab Results:: I have reviewed the patient's lab results. Results and Orders: Laboratory Tests 02/09/19 02/09/19 02/09/19 01:00 01:00 01:15 WBC 15.9 H Hgb 10.7 L Hct 33.3 L Plt Count 434 Neutrophils % 88.4 H Sodium 142 Potassium 4.6 D Chloride 104 BUN 7 Creatinine 0.61 Random Glucose 97 Calcium 9.9 Total Bilirubin 0.5 AST 44 ALT 10 L Alkaline Phosphatase 157 Amylase 29 Lipase 51 L Urine Color Yellow Urine Appearance Cloudy Urine pH 7.5 Ur Specific Opp 1.020 Urine Protein 15 H Urine Glucose (UA) Negative Urine Ketones 5 Urine Blood Negative Urine Nitrate Negative Ur Leukocyte Esterase Negative Urine Culture Comments No culture indicated - Vital Signs Patient's Vital Signs:: I have reviewed the patient's vital signs. Vital Signs: Vital Signs 02/09/19 00:06 Temperature 37.9 C Pulse Rate 127 H Respiratory Rate 16 Blood Pressure 162/93 H O2 Sat by Pulse Oximetry 98 - X-Ray X-Ray #1 X-Ray: abdomen Interpretation: Interp. by me X-ray Comments: No free air or dilated loops of bowel. Minimal a/f levels. No evidence for obstruction; - CT/Ultrasound CT/Ultrasound Narrative: CT abdomen and pelvis with oral contrast shows no evidence for bowel obstruction no intestinal inflammation or thickening. Previous postsurgical changes - Progress/Reassessment Chief Complaint: Nausea/Vomiting Progress:: Improved Progress Note-Subjective: 02/09/19 07:05 Patient resumed vomiting again after CT scan was done. Phenergan suppository 25 mg was used and patient has had no relief. IM Thorazine seemed to work earlier for short period of time so I will try that again. 02/09/19 08:35 Patient continues to have vomiting and abdominal pain. I spoke with Dr. Ulloa she agrees to observation admission Departure Clinical Impression: Intra-abdominal adhesions Nausea and vomiting Qualifiers: Vomiting type: unspecified Vomiting Intractability: intractable Qualified Code(s): R11.2 - Nausea with vomiting, unspecified - Departure Disposition: Still a patient Condition: Fair
[2019-02-09] MEDS ORDERED: HYDROmorphone HCL 1 MG/ML DISP.SYRIN IM ONE ×2 (00:58→02:23)
[2019-02-09 01:12] LABS: Hematocrit 33.3 % (37.0-47.0); Hemoglobin 10.7 gm/dL (12.5-16.0); Mean Corpuscular Hemoglobin 22.8 pg (27-31); Mean Corpuscular Hgb Conc 32.1 g/dl (32-36); Mean Platelet Volume 9.2 fl (8-12.5); Neutrophil # 14.1 K/mm3 (1.3-6.0); Neutrophil % 88.4 % (42-75.0); Platelet Count 434 K/mm3 (150-450); Red Blood Count 4.69 M/mm3 (4.2-5.4); Red Cell Distribution Width 21.3 % (11.5-14.0); White Blood Count 15.9 K/mm3 (4.0-10.5)
[2019-02-09 01:21] LABS: Urine Bilirubin 1 mg/dl (NEGATIVE); Urine Blood Negative /ul (NEGATIVE); Urine Ketone 5 mg/dL (NEGATIVE); Urine Nitrite Negative (NEGATIVE); Urine Protein 15 mg/dL (NEGATIVE); Urine Urobilinogen Normal (NORMAL); Urine pH 7.5 pH (5.0-7.0)
[2019-02-09 01:30] LABS: Urine Amorphous Sediment Few - 1+ (NONE-FEW); Urine Appearance Cloudy (CLEAR); Urine Bacteria TRACE; Urine Color Yellow; Urine Mucus Moderate - 2+; Urine RBC None Seen /hpf (0-5); Urine WBC 0-5 /hpf (0-5)
[2019-02-09 01:50] LABS: Albumin * 3.2 gm/dl (3.4-5.0); Anion Gap 21.9 mmol/L (6.8-13.8); BUN/Creatinine Ratio 11.5 (9.0-21.6); Bilirubin, Total 0.5 mg/dL (0.0-1.1); Ca. Corrected For Albumin 10.2 mg/dL (8.4-10.2); Calcium * 9.9 mg/dL (7.9-10.9); Carbon Dioxide 20.7 mmol/L (24-32.6); Potassium 4.6 mmol/L (3.4-4.6)
[2019-02-09] MEDS ORDERED: ONDANSETRON 4 MG TAB.RAPDIS PO ONE (02:24)
[2019-02-09] MEDS ORDERED: DIATRIZOATE MEGLUMINE, SODIUM 30 ML BTL PO ONE (02:50)
[2019-02-09] MEDS ORDERED: PROMETHAZINE HCL 12.5 MG SUPP.RECT RC ONE (06:03)
[2019-02-09] MEDS ORDERED: diphenhydrAMINE HCL 50 MG/ML VIAL IM ONE (07:04)
[2019-02-09] MEDS ORDERED: ACETAMINOPHEN 500 MG TABLET PO ONE (08:02)
[2019-02-09] MEDS ORDERED: ONDANSETRON 8 MG TAB.RAPDIS PO PRN (09:45)
[2019-02-09] MEDS: ONDANSETRON 8 MG TAB.RAPDIS PO SCH ×3 (10:15→17:53)
[2019-02-09] MEDS: HYDROmorphone HCL 1 MG/ML DISP.SYRIN IM PRN ×2 (10:46→17:55)
--- NOTE | 2019-02-09 12:35 | HP ---
Chief Complaint - Chief Complaint Date of Service: 02/09/19 Time of Service: 12:05 Chief Complaint: Intractable vomiting History of Present Illness: This is a 38-year-old woman who has had recurrent episodes of intractable vomiting associated with abdominal pain. 3 days ago she started with nausea and 2 episodes of vomiting. Yesterday until today she has had 10 episodes of vomiting. 2 episodes of vomiting were noticed in the emergency room. Plain abdominal films and abdominal CT essentially normal. There was some thickening of the distal ileum. This could be consistent with Crohn's disease. Towards the end of last year [place] was [place] of [place] and had an umbilical hernia. This was repaired. There was poor healing. Shortly after the surgery she slipped on ice and fell directly on the hernia. She has mesh in the hernia repair. It is thought that she may have infected mesh, and her surgeons are arguing back and forth about whether the mesh should be removed. She has diarrhea (chronic). At the present time we will not approach that problem. She has iron deficiency anemia. Her hemoglobin is 10.7. This is about what it always is. When she stops vomiting we will start iron. She has had fever chills and sweats. Her fever started yesterday and was 103 F. Today it was 39.4 centigrade at 0908. Her primary surgeons are at the [facility]. There are names are Dr. Abbott and Dr. Alvarez. Her primary gastroenterologists are at the [facility]. Their names are Maxime Stout and Erika Fajardo. She is also been seen at [facility]. The doctors who took care of her then were Torin South and Yoko Alegria. She always has diarrhea. There is no hematochezia or hematemesis. It has been about a month since she was last in the hospital and was doing fairly well until 3 days ago. She has had several infections in the recent past, thought to probably be due to infected mesh. On these occasions she is grown enterococcus, but does not respond well to cephalosporins. We have used augmented penicillins successfully to treat the problem. Fairly recently she has had upper and lower endoscopy. There was biopsy at the area where the cecum and the ileum come together. She was also found to have distal Christiana esophagitis. I do not have the biopsy report from those endoscopies. Her blood pressure on admission today was 140/74, pulse 117, respiratory rate 18, and respiratory rate 20. Her most recent temperature today is normal. Her most recent vitals show a blood pressure of 140/74, pulse 117, respiratory rate 18, and for both of these vitals her pulse was running about 122. Her O2 saturation was 96% since admission. Her initial urinalysis is unremarkable. Her initial white count is 15.9, hemoglobin 10.7 (she has chronic iron deficiency anemia, and this is about where her hemoglobin normally runs. For the white cell she had 88.4% neutrophils, 3.9% lymphocytes and 5.8% monocytes. Her CO2 was 20.7, anion gap 21.9, and albumin 3.2 (suggesting possible malnutrition). She takes an immune suppressant, azathioprine, 350 mg every day. This is for her Crohn's disease. Medical History (Updated 02/09/19 @ 08:37 by Femi Key DO) History of staph infection Hx of Crohn's disease Hx of intestinal obstruction bowel obstruction removal surgery gastric surgery hx of surgical wound hx stragulated hernia Surgical History: Surgical History (Updated 08/29/18 @ 14:57 by Josi Miles DO) History of gastric surgery Hx of cholecystectomy Hx of hernia repair Hx of tubal ligation Family History: Family History (Updated 08/03/18 @ 18:54 by Marissa Waters RN) Other Adopted Social History: (Last Reviewed 02/09/19 @ 12:23 by Celestino Lino MD) Social History: adopted: Yes lives independently: Yes household members: family number of children: 2 parent marital status: current occupational status: unemployed Highest education level completed: some college, no degree Service: No Tobacco: Smoking Status: Current every day smoker tobacco type: cigarettes Smoking cigarettes per day: 2 Alcohol: alcohol intake: former alcohol intake frequency: holiday/special occasion details: couple shots of philip allen a couple times a year Substance Use: substance use type: does not use Exercise: Physical activity type: other Review Of Systems (GEN) - Review of Systems Generalized/Overall Review: Present: Chills, Fever, Diaphoresis EENTM: Present: No Symptoms Reported Respiratory: Present: No Symptoms Reported Cardiac: Present: No Symptoms Reported Abdominal: Present: Nausea, Vomiting, Abdominal Pain Genitourinary: Present: No Symptoms Reported Musculoskeletal: Present: No Symptoms Reported Neurological: Present: Anxiety, Depressed Skin: Present: No Symptoms Reported Endocrine: Present: No Symptoms Reported Misc: All systems neg except as marked Immunizations: IMMUNIZATION HX Immunizations Up to Date No History of Influenza Vaccine Yes Hx Pneumococcal Vaccination No Allergies/Adverse Reactions: Allergies Allergy/AdvReac Type Severity Reaction Status Date / Time baclofen Allergy Severe Hives Verified 02/09/19 08:42 latex Allergy Severe Anaphylaxis Verified 02/09/19 08:42 metoclopramide HCl Allergy Severe Becomes Verified 02/09/19 08:42 [From Reglan] violent and hallucinations prochlorperazine Allergy Severe Becomes Verified 02/09/19 08:42 [From Compazine] violent and hallucinations tramadol Allergy Severe Other Verified 02/09/19 08:42 ketorolac [From Toradol] AdvReac Unknown Other Verified 02/09/19 08:42 IV contrast Allergy Mild See comment Uncoded 02/09/19 08:42 Home Medications: HOME MEDICATIONS chlorpromazine 25 mg tablet 25 mg PO Q4H PRN #100 tab 12/09/18 [Last Taken Unknown] esomeprazole magnesium 20 mg capsule,delayed release 20 mg PO DAILY #30 cap 12/09/18 [Last Taken Unknown] ondansetron 4 mg disintegrating tablet 4 mg PO Q4H #100 tab 12/09/18 [Last Taken 02/08/19 22:00] zolpidem 10 mg tablet 10 mg PO HS PRN #30 tab 12/09/18 [Last Taken Unknown] Acetaminophen [Tylenol] 975 mg PO PRN PRN 02/09/19 [Last Taken 02/08/19 22:00] Exam - Exam Vital Signs: Vital Signs - Last Taken Temp 37.6 C 02/09/19 09:29 Pulse 122 H 02/09/19 09:29 Resp 20 02/09/19 09:29 BP 134/69 02/09/19 09:29 Pulse Ox 96 02/09/19 09:29 Constitutional: Present: Alert, Oriented x3, Cooperative, Well developed, Well nourished - BMI 33.5, Mild distress ENT Exam: Present: normal ENT inspection, hearing grossly normal Eye Exam: bilateral eye: normal inspection, PERRL, EOMI Neck: Present: non-tender, normal inspection. Absent: thyromegaly Back Exam: Present: normal inspection, no CVA tenderness, no vertebral tenderness Breasts: Present: Exam deferred Respiratory: Present: chest non-tender, lungs clear Cardiovascular/Chest: Present: normal peripheral pulses, regular rate, rhythm, no edema Peripheral Pulses: carotid (R): 1+, carotid (L): 1+ Abdomen: Present: Normal bowel sounds, soft, no rebound tenderness, no hepatospenomegaly, obese, tender - Especially on the right abdomen. There is evidence of midline hernia repair. There is a new hernia to the left of the previous repair. /Rectal: Present: Exam deferred Extremity: Present: normal range of motion, normal inspection Skin Exam: Present: normal color, warm/dry, no cyanosis Lymphatic: Present: no adenopathy Neurologic: Absent: abnormal gait, motor weakness Appearance: Present: appropriate appearance, appropriate insight, neat, no memory impairment Eye contact: Present: cooperative, good eye contact, normal speech Thoughts: Present: normal thought pattern Diagnostic Studies: Abnormal Lab Results 02/09/19 02/09/19 02/09/19 Range/Units 01:00 01:00 01:15 WBC 15.9 H (4.0-10.5) K/mm3 Hgb 10.7 L (12.5-16.0) gm/dL Hct 33.3 L (37.0-47.0) % MCV 71.0 L (78-100) fl MCH 22.8 L (27-31) pg RDW 21.3 H (11.5-14.0) % Immature Gran % (Auto) 0.90 H (0.001-0.429) % Immature Gran # (Auto) 0.15 H (0.000-0.0310) K/mm3 Neutrophils % 88.4 H (42-75.0) % Lymphocytes % 3.9 L (20-51) % Neutrophils # 14.1 H (1.3-6.0) K/mm3 Lymphocytes # 0.62 L (1.5-3.5) k/mm3 Carbon Dioxide 20.7 L (24-32.6) mmol/L Anion Gap 21.9 H (6.8-13.8) mmol/L ALT 10 L (19-67) U/L Albumin 3.2 L (3.4-5.0) gm/dl Lipase 51 L (73-393) U/L Urine Protein 15 H (NEGATIVE) mg/dL Urine Bilirubin 1 H (NEGATIVE) mg/dl Ur Epithelial Cells 5-10 H (0-5) /hpf Urine Mucus Moderate - 2+ H (NONE) Laboratory Results WBC 15.9 K/mm3 (4.0-10.5) H 02/09/19 01:00 RBC 4.69 M/mm3 (4.2-5.4) 02/09/19 01:00 Hgb 10.7 gm/dL (12.5-16.0) L 02/09/19 01:00 Hct 33.3 % (37.0-47.0) L 02/09/19 01:00 MCV 71.0 fl (78-100) L 02/09/19 01:00 MCH 22.8 pg (27-31) L 02/09/19 01:00 MCHC 32.1 g/dl (32-36) 02/09/19 01:00 RDW 21.3 % (11.5-14.0) H 02/09/19 01:00 Plt Count 434 K/mm3 (150-450) 02/09/19 01:00 MPV 9.2 fl (8-12.5) 02/09/19 01:00 Immature Gran % (Auto) 0.90 % (0.001-0.429) H 02/09/19 01:00 Immature Gran # (Auto) 0.15 K/mm3 (0.000-0.0310) H 02/09/19 01:00 88.4 % (42-75.0) H 02/09/19 01:00 3.9 % (20-51) L 02/09/19 01:00 5.8 % (0.0-9) 02/09/19 01:00 0.4 % (0.0-3.0) 02/09/19 01:00 0.6 % (0.0-1.0) 02/09/19 01:00 Nucleated RBC % 0.0 k/mm3 (0-1) 02/09/19 01:00 14.1 K/mm3 (1.3-6.0) H 02/09/19 01:00 0.62 k/mm3 (1.5-3.5) L 02/09/19 01:00 0.9 k/mm3 (0.0-1.0) 02/09/19 01:00 0.1 k/mm3 (0.0-0.7) 02/09/19 01:00 Absolute Basophils 0.1 k/mm3 (0.0-0.1) 02/09/19 01:00 Sodium 142 mmol/L (132-142) 02/09/19 01:00 142 mmol/L (130-142) 02/09/19 01:00 Potassium 4.6 mmol/L (3.4-4.6) D 02/09/19 01:00 Chloride 104 mmol/L (97-106) 02/09/19 01:00 Carbon Dioxide 20.7 mmol/L (24-32.6) L 02/09/19 01:00 21.9 mmol/L (6.8-13.8) H 02/09/19 01:00 BUN 7 mg/dL (3-23) 02/09/19 01:00 0.61 mg/dL (0.4-1.4) 02/09/19 01:00 Est GFR (Non-Af Amer) 117 mL/min (60-130) D 02/09/19 01:00 11.5 (9.0-21.6) 02/09/19 01:00 97 mg/dL (70-110) 02/09/19 01:00 Calcium 9.9 mg/dL (7.9-10.9) 02/09/19 01:00 Calcium Adj for Albumin 10.2 mg/dL (8.4-10.2) 02/09/19 01:00 0.5 mg/dL (0.0-1.1) 02/09/19 01:00 AST 44 U/L (0-48) 02/09/19 01:00 ALT 10 U/L (19-67) L 02/09/19 01:00 157 U/L (50-170) 02/09/19 01:00 8.0 gm/dL (6.2-8.2) 02/09/19 01:00 3.2 gm/dl (3.4-5.0) L 02/09/19 01:00 Amylase 29 U/L (25-115) 02/09/19 01:00 51 U/L (73-393) L 02/09/19 01:00 Yellow 02/09/19 01:15 Cloudy (CLEAR) 02/09/19 01:15 7.5 pH (5.0-7.0) 02/09/19 01:15 Ur Specific Force 1.020 SP.GR. (1.005-1.010) 02/09/19 01:15 15 mg/dL (NEGATIVE) H 02/09/19 01:15 Negative mg/dL (NEGATIVE) 02/09/19 01:15 5 mg/dL (NEGATIVE) 02/09/19 01:15 Negative /ul (NEGATIVE) 02/09/19 01:15 Negative (NEGATIVE) 02/09/19 01:15 1 mg/dl (NEGATIVE) H 02/09/19 01:15 Negative (NEGATIVE) 02/09/19 01:15 Prot Sulfosalicylic Acd Negative mg/dL (0) 02/09/19 01:15 Normal EU/dl (NORMAL) 02/09/19 01:15 Ur Leukocyte Esterase Negative /ul (NEGATIVE) 02/09/19 01:15 None seen /hpf (0-5) 02/09/19 01:15 0-5 /hpf (0-5) 02/09/19 01:15 Ur Epithelial Cells 5-10 /hpf (0-5) H 02/09/19 01:15 Amorphous Sediment Few - 1+ (NONE-FEW) 02/09/19 01:15 Trace (NONE) 02/09/19 01:15 Moderate - 2+ (NONE) H 02/09/19 01:15 No culture indicated 02/09/19 01:15 Please see my comment about all of these in the history of present illness. Assessment/Plan - Assessment/Plan (1) Intractable vomiting Assessment: We will keep her n.p.o., give her IV fluids (IV access is apparently not possible, so we have asked surgery to consider a central line). We will also give medications in effort to control the vomiting. We will also prescribe pain medication. Problem: Acute Qualifiers: Vomiting type: unspecified Nausea presence: with nausea Qualified Code(s): R11.2 - Nausea with vomiting, unspecified (2) Fever Assessment: We will monitor obtain cultures and start antibiotics. In the last several admissions she has grown enterococcus from her blood, but so far no vancomycin resistant enterococcus. Problem: Acute Qualifiers: Fever type: due to other condition Qualified Code(s): R50.81 - Fever presenting with conditions classified elsewhere (3) Crohns disease Problem: Chronic Qualifiers: Gastrointestinal tract location: small intestine Digestive disease complication type: other complication Qualified Code(s): K50.018 - Crohn's disease of small intestine with other complication (4) Enterococcus as the cause of diseases classified elsewhere Problem: Suspected (5) Abdominal pain in female Problem: Acute (6) Tobacco abuse Problem: Chronic
--- NOTE | 2019-02-09 12:37 | PN ---
Progess Note - Interim Date: 02/09/19 Time: 12:36 Narrative: 02/09/19 12:36 Because azathioprine is an immune system suppressant, we will stop it for the time being.
--- NOTE | 2019-02-09 13:05 | PN ---
Progess Note - Interim Date: 02/09/19 Time: 13:01 Narrative: 02/09/19 13:02 For difficult iv access and management assistance, we will consult surgery. The ongoing plan is to avoid abdominal surgery unless there is no other option. There is no surgical indication today. I suspect infection from her hernia mesh with possible sepsis probably from Enterococcus.
[2019-02-09] MEDS: LORazepam 0.5 MG TABLET PO SCH ×2 (13:10→17:58)
--- NOTE | 2019-02-09 17:46 | CONS ---
HPI - General Date of Service: 02/09/19 Source: patient, RN/MD, RN notes reviewed, old records Exam Limitations: no limitations - History of Present Illness Timing/Duration: 24 hours Severity: moderate Modifying Factors - (Worsens): Reports: eating Modifying Factors - (Improves): Reports: medication, rest Associated Symptoms: fever/chills, nausea, vomiting Allergies/Adverse Reactions: Allergies baclofen Allergy (Severe, Verified 02/09/19 08:42) Hives latex Allergy (Severe, Verified 02/09/19 08:42) Anaphylaxis anaphylactic metoclopramide HCl [From Reglan] Allergy (Severe, Verified 02/09/19 08:42) Becomes violent and hallucinations prochlorperazine [From Compazine] Allergy (Severe, Verified 02/09/19 08:42) Becomes violent and hallucinations tramadol Allergy (Severe, Verified 02/09/19 08:42) Other seizure ketorolac [From Toradol] Adverse Reaction (Unknown, Verified 02/09/19 08:42) Other Patient states that her GI Doctor says she is not to have NSAIDS. IV contrast Allergy (Mild, Uncoded 02/09/19 08:42) See comment Pt states that she can tolerate IV contrast if premedicated. 08/16/18 had hives after premedications. please talk to radiology before proceeding Home Medications: Home Medications Medication Instructions Recorded Last Taken chlorpromazine 25 mg tablet 25 mg PO Q4H PRN #100 tab 12/09/18 Unknown esomeprazole magnesium 20 mg 20 mg PO DAILY #30 cap 12/09/18 Unknown capsule,delayed release ondansetron 4 mg disintegrating 4 mg PO Q4H #100 tab 12/09/18 02/08/19 22:00 tablet zolpidem 10 mg tablet 10 mg PO HS PRN #30 tab 12/09/18 Unknown Acetaminophen [Tylenol] 975 mg PO PRN PRN 02/09/19 02/08/19 22:00 Procedures Application of splint (06/25/11) Insertion of Infusion Device into Left Foot Vein, Percutaneous Approach (08/11/18) Insertion of Infusion Device into Right Internal Jugular Vein, Percutaneous Approach (08/11/18) Ultrasonography of Right Jugular Veins, Guidance (08/11/18) Medications - Medications Current Medications: Current Medications Hydromorphone HCl (Dilaudid) 1 mg IM TID PRN PRN Reason: Pain Stop: 03/11/19 09:56 Last Admin: 02/09/19 10:46 Dose: 1 mg Documented by: Ondansetron HCl (Zofran Odt) 8 mg PO Q4H CHIOMA Stop: 03/11/19 10:01 Last Admin: 02/09/19 14:00 Dose: Not Given Documented by: Review of Systems - Review of Systems Generalized/Overall Review: Present: Fever EENTM: Present: No Symptoms Reported Respiratory: Present: No Symptoms Reported Cardiac: Absent: Chest Pain Abdominal: Present: Other - She began having abdominal pain and vomiting last night. Since admission she was given a dose of IM medication at about 11 AM and is slept continuously all day. She states she is thirsty now Genitourinary: Present: No Symptoms Reported Musculoskeletal: Present: No Symptoms Reported Neurological: Present: No Symptoms Reported Skin: Present: No Symptoms Reported Physical Examination - Exam Vital Signs: Vital Signs - Last Taken Temp 37.1 C 02/09/19 15:40 Pulse 100 02/09/19 15:40 Resp 16 02/09/19 15:40 BP 136/76 02/09/19 15:40 Pulse Ox 95 02/09/19 15:40 O2 Oxygen Delivery Method Room Air Constitutional: Present: Alert, Oriented x3, Well nourished, Other - On entering the room she is asleep. She has anticipatory anxiety over an exam and complains at even the lightest touch, however there is no guarding or rebound to surreptitious removal of the examining hand. ENT Exam: Present: normal ENT inspection, other - Poor dentition Eye Exam: bilateral eye: normal inspection Neck: Present: full range of motion, normal inspection Breasts: Present: Exam deferred Respiratory: Present: no respiratory distress, no accessory muscle use Cardiovascular/Chest: Present: regular rate, rhythm Abdomen: Present: soft, other - She has a midline scar which is healed by secondary intent. No erythema or drainage. Mild protuberance of the scarred area to the left of midline but no evidence of incarcerated hernia., distended. 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, normal cerebellar test, no motor/sensory deficits Appearance: Present: other - Her physical reactions are more exaggerated than expected to a grossly normal exam Eye contact: Present: avoids eye contact - Results and Findings: Lab/Microbiology results last 24 hrs: Abnormal/Pending Laboratory Last 24 HRS 02/09/19 02/09/19 02/09/19 01:15 01:00 01:00 WBC 15.9 H Hgb 10.7 L Hct 33.3 L MCV 71.0 L MCH 22.8 L RDW 21.3 H Immature Gran % (Auto) 0.90 H Immature Gran # (Auto) 0.15 H Neutrophils % 88.4 H Lymphocytes % 3.9 L Neutrophils # 14.1 H Lymphocytes # 0.62 L Carbon Dioxide 20.7 L Anion Gap 21.9 H ALT 10 L Albumin 3.2 L Lipase 51 L Urine Protein 15 H Urine Bilirubin 1 H Ur Epithelial Cells 5-10 H Urine Mucus Moderate - 2+ H - Assessments/Findings (1) Nausea and vomiting Diagnosis(s): She has not vomited since receiving medication 6 hours ago. She has been asleep all day. She states she wishes to try some liquids. Her past history is very complicated, and a majority of her care has been elsewhere----she states she was at the [facility] 2 months ago and she sees Dr. Alvarez there. I have reviewed her old records records previously when I last saw her in consultation in April 2015. I have reviewed her multiple visits here since then. In August and September she was in the emergency room several times. There was concern over infected mesh and she was transferred to the [facility] but signed out AMA. She has been in for pain and nausea medication and sent home. Most recently on 01/02/2019 she presented with nausea and vomiting. There was a problem with IV access. A central line was started in the ER and she was transferred to the [facility] (this is apparently the hospitalization she refers to above). Unfortunately none of the outside records are available for review. Her underlying disease processes reputedly Crohn's disease. She has had multiple operations with an incisional hernia which was repaired with mesh which apparently became infected. She has poor venous access and has had multiple previous central lines with history of an infected central line in the past. IMPRESSION: Nausea and vomiting. Very complex surgical history, however current CT scan does not suggest obstruction or acute intra-abdominal process. Underlying history of inflammatory bowel disease (confirmational documentation unavailable). Possible infected mesh. Her current abdominal exam is benign. Very difficult patient to assess RECOMMEND: An attempt should be made to get a release of information for all of her treatment at outside facilities. Specifically her most recent encounter at the [facility] documents need to be obtained for their assessment and plan. If at all possible she should be encouraged to take liquids with nausea medication to maintain hydration, as a central line carries significant risk. She may be a candidate for a buried infusion port, however she may have had these before with problems. Ideally her should care should be entirely under one provider and set of consultants for continuity of care to avoid multiple hospital stays. I have discussed her case at length with Dr. Dee Calderón and Dr. Ulloa who is online communications specialist [facility]. Problem: Acute Qualifiers: Vomiting type: unspecified Vomiting Intractability: intractable Qualified Code(s): R11.2 - Nausea with vomiting, unspecified
[2019-02-09] MEDS: ENOXAPARIN SODIUM 40 MG/0.4 ML SYRG SC SCH (17:53)
[2019-02-09] MEDS: AMPICILLIN SODIUM/SULBACTAM NA 3 GM in NORMAL SALINE 100 ML IV SCH ×2 (19:54→19:55)
[2019-02-09] MEDS: FAMOTIDINE 20 MG in DEXTROSE 5 % IN WATER 100 ML IV SCH ×4 (19:55→20:50)
[2019-02-10] MEDS: AMPICILLIN SODIUM/SULBACTAM NA 3 GM in NORMAL SALINE 100 ML IV SCH ×2 (01:40→05:28)
[2019-02-10] MEDS: ONDANSETRON 8 MG TAB.RAPDIS PO SCH ×8 (01:40→22:22)
[2019-02-10] MEDS: HYDROmorphone HCL 1 MG/ML DISP.SYRIN IM PRN ×2 (01:49→23:47)
[2019-02-10] MEDS: LORazepam 0.5 MG TABLET PO SCH ×4 (05:13→22:22)
[2019-02-10] MEDS ORDERED: ACETAMINOPHEN 500 MG TABLET PO PRN ×2 (08:02→17:07)
[2019-02-10] MEDS ORDERED: FAMOTIDINE 20 MG TABLET PO SCH (09:00)
[2019-02-10] MEDS ORDERED: azaTHIOprine 50 MG TABLET PO SCH (09:00)
[2019-02-10] MEDS: chlorproMAZINE HCL 10 MG TABLET PO SCH ×4 (09:06→22:23)
--- NOTE | 2019-02-10 09:29 | PN ---
Progess Note - Interim Date: 02/10/19 Time: : Narrative: 02/10/19 09:[address] Lynch, gastroenterology, [facility] this morning. Upper and lower endoscopies were done. Biopsies taken. Small ulcer they clipped in stomach. Biopsies included distal ilium which was normal. His cell phone is [phone]. He and I agreed CBT would be helpful to train her to control vomiting.
[2019-02-10] MEDS ORDERED: DULoxetine HCL 30 MG CAPSULE.SA PO SCH (09:30)
[2019-02-10] MEDS: DICYCLOMINE HCL 20 MG TABLET PO SCH ×3 (10:04→15:02)
[2019-02-10] MEDS: ENOXAPARIN SODIUM 40 MG/0.4 ML SYRG SC SCH (10:40)
--- NOTE | 2019-02-10 11:47 | PN ---
Subjective - Date and Time Seen Date: 02/10/19 Time: 11:27 Subjective Narrative: She slept all night according to the nursing report and had no vomiting through the night. This morning I thought I would work on sending her home, so I begin to switch her parenteral medicines to oral. She has refused to take most of them. She has used this pattern in the past. I also discontinued her parenteral Dilaudid. This has happened at other hospitals: As soon as it occurs she signed out of the hospital. She says she cannot keep anything down and is vomiting multiple times. The only thing we have documented since the start of today is about 4 tablespoons of clear material. She always has diarrhea. She continues to have diarrhea. She has been to the [facility] multiple times. She had upper and lower endoscopies last month. Last month it showed:a tiny ulcer in her stomach not bleeding which they stapled. They saw an entirely normal colon and ileum. They took multiple biopsies in the colon also biopsied the ileum. All of these biopsies were normal. She states that she has had at least one previous one that shows on biopsy an abnormal terminal ileum. On upper endoscopy last month that showed that she had a Christiana infection in the distal third of her esophagus. We explained to her why we need to switch to pills. She said: I will just keep vomiting, and not tell anybody. We explained that every single time she vomits at she does so in the blue bag so her nurse can measure it. She did have a fever yesterday, but it went away on its own without antibiotics. There is been argument back and forth about whether she has an infected abdomi nal mesh. No one wants to remove it. We will treat the fever with ongoing observation. She agreed she would take her oral medicines (yet to be seen), and we would all wait until about 5:00 to figure out whether or not she can go home. We have not been able to obtain an IV access. Dr. Galaviz thanks subclavian at this point is more risky than helpful. She refused being stuck for blood work this morning. Objective - Review of Systems Generalized/Overall Review: Reports: Malaise EENTM: Reports: No Symptoms Reported Respiratory: Reports: No Symptoms Reported Cardiac: Reports: No Symptoms Reported Abdominal: Reports: Nausea, Vomiting, Abdominal Pain Genitourinary Symptoms: Reports: No Symptoms Reported Musculoskeletal Complaints: Reports: No Symptoms Reported Neurological: Reports: Anxiety, Depressed Skin: Reports: No Symptoms Reported Endocrine: Reports: No Symptoms Reported Misc: All systems neg except as marked - Vitals Vitals: Last Vital Signs Temp 36.6 C 02/10/19 09:55 Pulse 90 02/10/19 09:55 Resp 20 02/10/19 09:55 BP 121/63 02/10/19 09:55 Pulse Ox 98 02/10/19 09:55 Her vitals have remained stable. She has not had a fever since yesterday. - Exam Constitutional: Present: Alert, Oriented x3, Well developed, Obese ENT Exam: Present: normal ENT inspection, hearing grossly normal Neck: Present: non-tender, normal inspection Respiratory: Present: lungs clear, no respiratory distress Cardiovascular/Chest: Present: regular rate, rhythm, no edema, no JVD Abdomen: Present: Normal bowel sounds, soft, no rebound tenderness, no hepatospenomegaly, obese, tender - Tender all over, most prominently just to the right of her ventral abdominal hernia repair. /Rectal: Present: Exam deferred Extremity: Present: normal inspection, normal capillary refill Skin Exam: Present: normal color, warm/dry Neurologic: Present: other - Petulant Appearance: Present: appropriate appearance, impaired insight Eye contact: Present: cooperative - Relatively cooperative, normal speech, avoids eye contact Thoughts: Present: normal thought pattern Assessment/Plan - Problems/Diagnosis (1) Intractable vomiting Problem: Acute Qualifiers: Vomiting type: unspecified Nausea presence: with nausea Qualified Code(s): R11.2 - Nausea with vomiting, unspecified (2) Enterococcus as the cause of diseases classified elsewhere Problem: Inactive (3) Fever Problem: Resolved Qualifiers: Fever type: unspecified Qualified Code(s): R50.9 - Fever, unspecified Narrative: At the present time since the fever went away without antibiotics and her temperature is been normal ever since yesterday, I am not going to prescribe antibiotics. 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 (4) Noncompliance with medications Problem: Acute (5) Crohns disease Problem: Chronic Qualifiers: Gastrointestinal tract location: small intestine Digestive disease complication type: other complication Qualified Code(s): K50.018 - Crohn's disease of small intestine with other complication Narrative: We are trying to obtain documentation of an abnormal terminal ileum biopsy. So far we have not received that information from the [facility]. (6) Abdominal pain in female Problem: Acute (7) Tobacco abuse Problem: Chronic
[2019-02-10] MEDS ORDERED: ACETAMINOPHEN 500 MG TABLET PO SCH (13:00)
[2019-02-10] MEDS ORDERED: HYDROmorphone HCL 1 MG/ML DISP.SYRIN IM ONE (15:26)
--- NOTE | 2019-02-10 16:43 | PN ---
Tran Note - Interim Date: 02/10/19 Time: 16:41 Narrative: 02/10/19 16:41 At 440 today I reviewed some records from [place]. They were in store representative of hospitalizations at the [facility] in November and then in December of this year. Thus far, there are no other records. It appears she had upper and lower endoscopy in November and the [facility]. There was a small gastric ulcer which was stapled. There are multiple biopsies in the colon which appeared normal and in the ileum which appeared normal. She says there are some endoscopies where she was told she had Crohn's. We will continue to work on obtaining these previous records.
--- NOTE | 2019-02-10 16:58 | PN ---
Tran Note - Interim Date: 02/10/19 Time: 16:52 Narrative: 02/10/19 16:52 I reevaluated her in person just now. I explained what I found in the limited old records from the [facility]. Our nurses documented substantial amounts of emesis x2 this afternoon. We will therefore change our plan from trying to give her oral medications to parenteral medications. She can go home when she is not vomiting and is able to keep her medications down. At the present time she is feeling much better than she was a little earlier this afternoon. Her vitals have been stable. There has been no recurrence of fever. I am not sure why she has the symptoms that she does. Our present day working diagnoses shall be: Intractable vomiting (cyclic vomiting syndrome? Other similar illness?). Abdominal pain in the female. Cause unknown. Fever of unknown cause. There is controversy about whether or not her abdominal mesh is infected. Regardless, surgeons are very reluctant to do anything operative with it at this point. She looks more comfortable. Her abdominal exam is unchanged from this morning. Our plan is to use parenteral medication until she stops vomiting and is able to take her medications by mouth. If she is discharged home this weekend I would like to see her in 3 days in the office. On Wednesday I will see if we can get the other endoscopy reports from the [facility]. She thinks she has had a total of 4. She is already requested the endoscopy results from the [facility]. We will review those once they arrive.
[2019-02-10] MEDS ORDERED: ENOXAPARIN SODIUM 40 MG/0.4 ML SYRG SC SCH (17:00)
[2019-02-11] MEDS: ONDANSETRON 8 MG TAB.RAPDIS PO SCH ×2 (05:36→07:56)
[2019-02-11] MEDS: HYDROmorphone HCL 1 MG/ML DISP.SYRIN IM PRN (07:57)
[2019-02-11] MEDS: chlorproMAZINE HCL 10 MG TABLET PO SCH ×2 (09:20→12:39)
[2019-02-11] MEDS: LORazepam 0.5 MG TABLET PO SCH ×2 (09:20→12:39)
[2019-02-11] MEDS ORDERED: METOPROLOL TARTRATE 25 MG TABLET PO SCH (09:30)
[2019-02-11] MEDS ORDERED: PROMETHAZINE HCL 25 MG SUPP.RECT RC PRN (09:50)
--- NOTE | 2019-02-11 10:14 | DS ---
Description of Stay: 38-year-old female admitted for abdominal pain, nausea, and vomiting, was evaluated at bedside was found to be afebrile and in no acute distress. Patient's nausea has improved however she reports vomiting this morning of small amounts of clear to yellowish fluid. She is currently on a clear liquid diet, we will keep her on a clear liquid and instruct her to slowly progress her diet as tolerated at home. Patient still reports right upper quadrant pain however all imaging and physical exam have not demonstrated any concerning findings that would explain her symptoms. She is convinced that she has chronic disease although outpatient work-up has not confirmed that, I will leave that to be discussed with her PCP. Currently the plan is to discharge patient with analgesics for abdominal pain and antiemetics, we have just switched to promethazine to be administered rectally since patient reports that the Zofran that we have been treating her with has not been effective, she also reports allergy to Reglan. Therefore patient will be provided with a prescription for transrectal promethazine to be administered every 4-6 hours as needed. She is also instructed to follow-up with her PCP on Wednesday for reevaluation. Procedures Performed: none Results and Findings: Pending Mircobiology Results 02/09/19 13:00 Blood Blood Culture - Preliminary NO GROWTH 24 HOURS 02/09/19 12:20 Blood Blood Culture - Preliminary NO GROWTH 24 HOURS Lab Pending Results 02/09/19 01:00: WBC 15.9 H, RBC 4.69, Hgb 10.7 L, Hct 33.3 L, MCV 71.0 L, MCH 22.8 L, MCHC 32.1, RDW 21.3 H, Plt Count 434, MPV 9.2, Immature Gran % (Auto) 0.90 H, Immature Gran # (Auto) 0.15 H, Neutrophils % 88.4 H, Lymphocytes % 3.9 L, Monocytes % 5.8, Eosinophils % 0.4, Basophils % 0.6, Nucleated RBC % 0.0, Neutrophils # 14.1 H, Lymphocytes # 0.62 L, Monocytes # 0.9, Eosinophils # 0.1, Absolute Basophils 0.1 02/09/19 01:00: Sodium 142, Plasma Sodium 142, Potassium 4.6 D, Chloride 104, Carbon Dioxide 20.7 L, Anion Gap 21.9 H, BUN 7, Creatinine 0.61, Est GFR (Non-Af Amer) 117 D, BUN/Creatinine Ratio 11.5, Random Glucose 97, Calcium 9.9, Calcium Adj for Albumin 10.2, Total Bilirubin 0.5, AST 44, ALT 10 L, Alkaline Phosphatase 157, Total Protein 8.0, Albumin 3.2 L, Amylase 29, Lipase 51 L 02/09/19 01:15: Urine Color Yellow, Urine Appearance Cloudy, Urine pH 7.5, Ur Specific [place] 1.020, Urine Protein 15 H, Urine Glucose (UA) Negative, Urine Ketones 5, Urine Blood Negative, Urine Nitrate Negative, Urine Bilirubin 1 H, Urine Ictotest Negative, Prot Sulfosalicylic Acd Negative, Urine Urobilinogen Normal, Ur Leukocyte Esterase Negative, Urine RBC None seen, Urine WBC 0-5, Ur Epithelial Cells 5-10 H, Amorphous Sediment Few - 1+, Urine Bacteria Trace, Urine Mucus Moderate - 2+ H, Urine Culture Comments No culture indicated Discharge Location: Home Disposition: Home self-care Condition: Fair Face to Face Encounter completed per [facility] Guidelines: No Discharge Activity: Activity as tolerated Discharge Diet: Clear Liquids Referrals: Celestino Lino MD [Primary Care Provider] - Prescriptions (Any new or edited meds): HYDROcodone/ACETAMINOPHEN [[place] 5-325 Tablet] 1 each PO DAILY PRN #5 tablet PRN Reason: Pain Promethazine HCl [Phenergan Suppository] 25 mg RC Q6H PRN 8 Days #30 supp.rect PRN Reason: Nausea And Vomiting Complete Home Medications List: Complete Home Medication List: chlorpromazine 25 mg tablet 25 mg PO Q4H PRN #100 tab 12/09/18 esomeprazole magnesium 20 mg capsule,delayed release 20 mg PO DAILY #30 cap 12/09/18 zolpidem 10 mg tablet 10 mg PO HS PRN #30 tab 12/09/18 Acetaminophen [Tylenol] 975 mg PO PRN PRN 02/09/19 HYDROcodone/ACETAMINOPHEN [[place] 5-325 Tablet] 1 each PO DAILY PRN #5 tablet 02/11/19 Promethazine HCl [Phenergan Suppository] 25 mg RC Q6H PRN 8 Days #30 supp.rect 02/11/19
[2019-02-11 14:52] VITALS: BP 103/52
== END 2019-02-11 15:22 | disposition home or self-care (01) ==
LOC: MS 00:02 → ER 00:02 → MS 08:45
PROVIDERS: ADMIT Allergy & Immunology; ATTEND Allergy & Immunology
DX: K50.00 Crohn's disease of small intestine without complications; I10 Essential (primary) hypertension; R11.2 Nausea with vomiting, unspecified
CPT/HCPCS: 36415; 74019; 74020; 74176; 80053; 81001; 82150; 83690; 85025; 87040; 87086; 96372; 99285; G0378

== ENCOUNTER 2019-03-02 15:07 | Observation (INO) ==
[2019-03-02] MEDS ORDERED: NORMAL SALINE 1,000 ML IV ONE (15:47)
[2019-03-02] MEDS ORDERED: ONDANSETRON HCL/PF 2 MG/ML VIAL IV ONE (15:50)
[2019-03-02 15:55] LABS: Urine Bilirubin 1 mg/dl (NEGATIVE); Urine Blood Negative /ul (NEGATIVE); Urine Ketone Negative (NEGATIVE); Urine Nitrite Negative (NEGATIVE); Urine Protein 15 mg/dL (NEGATIVE); Urine Specific Gravity >=1.030 SP.GR. (1.005-1.010); Urine Urobilinogen Normal (NORMAL); Urine pH 5.5 pH (5.0-7.0)
[2019-03-02 16:06] LABS: Urine Appearance Cloudy (CLEAR); Urine Color Yellow; Urine RBC None Seen /hpf (0-5); Urine WBC None Seen /hpf (0-5)
[2019-03-02 16:07] LABS: Cocaine Ur Negative (NEGATIVE); Urine Bacteria 1+; Urine Barbiturate Negative (NEGATIVE); Urine Benzodiazepines Negative (NEGATIVE); Urine Opiates Negative (NEGATIVE); Urine PCP Negative (NEGATIVE); Urine THC Negative (NEGATIVE)
--- NOTE | 2019-03-02 16:22 | ERNOTE ---
<Reji Betancourt - Last Filed: 03/02/19 19:40> GI Bleeding/Rectal Pain ER Date of Service: 03/02/19 Presenting Symptoms: rectal bleeding, dark/tarry stools Time Seen by Provider: 03/02/19 19:42 Source: patient, family Exam Limitations: no limitations Immunizations: IMMUNIZATION HX Immunizations Up to Date Yes History of Influenza Vaccine Yes Hx Pneumococcal Vaccination No Allergies/Adverse Reactions: Allergies baclofen Allergy (Severe, Verified 03/02/19 15:26) Hives latex Allergy (Severe, Verified 03/02/19 15:26) Anaphylaxis anaphylactic metoclopramide HCl [From Reglan] Allergy (Severe, Verified 03/02/19 15:26) Becomes violent and hallucinations prochlorperazine [From Compazine] Allergy (Severe, Verified 03/02/19 15:26) Becomes violent and hallucinations tramadol Allergy (Severe, Verified 03/02/19 15:26) Other seizure ketorolac [From Toradol] Adverse Reaction (Unknown, Verified 03/02/19 15:26) Other Patient states that her GI Doctor says she is not to have NSAIDS. IV contrast Allergy (Mild, Uncoded 03/02/19 15:26) See comment Pt states that she can tolerate IV contrast if premedicated. 08/16/18 had hives after premedications. please talk to radiology before proceeding Home Medications: HOME MEDICATIONS chlorpromazine 25 mg tablet 25 mg PO Q4H PRN #100 tab 12/09/18 [Last Taken Unknown] esomeprazole magnesium 20 mg capsule,delayed release 20 mg PO DAILY #30 cap 12/09/18 [Last Taken Unknown] zolpidem 10 mg tablet 10 mg PO HS PRN #30 tab 12/09/18 [Last Taken Unknown] Acetaminophen [Tylenol] 975 mg PO PRN PRN 02/09/19 [Last Taken 02/08/19 22:00] ondansetron HCl 4 mg tablet 4 mg PO QD-BID PRN #15 tab 02/23/19 [Last Taken Unknown] Diclofenac Sodium [Voltaren] 1 gm TOPICAL BID #100 gel..gram. 03/01/19 [Last Taken Unknown] HYDROcodone/ACETAMINOPHEN [[place] 5-325 Tablet] 1 tab PO Q6H 03/03/19 [Last Taken Unknown] Narrative: patient presents to ed with c/o abdominal pain, tarry stools, followed by rectal bleeding, also c/oo severe depression Timing: constant, getting worse Quality/Severity: Present: moderate, dullness, fullness, stabbing Nausea/Vomiting: Present: clear Abdominal Pain: Present: diffuse Rectal Bleeding: Present: without stool Associated Symptoms: Reports: black stools Prior Treament: Reports: recently seen, treated by physician, recently hospitalized Review of Systems - Review of Systems Constitutional: Present: See HPI, weakness, fatigue, malaise EYE: Present: no symptoms reported ENT: Present: no symptoms reported Respiratory: Present: no symptoms reported Cardiology: Present: no symptoms reported Gastrointestinal/Abdominal: Present: See HPI, nausea, abdominal pain, eating less, drinking less Genitourinary: Present: no symptoms reported Musculoskeletal: Present: no symptoms reported Skin: Present: no symptoms reported Neurological: Present: no symptoms reported Endocrine: Present: no symptoms reported Hematologic/Lymphatic: Present: no symptoms reported Psych: Present: no symptoms reported All Other Systems: All systems neg except as marked Medical History (Updated 03/01/19 @ 10:44 by Phoenix Vazquez DO) History of staph infection Hx of Crohn's disease Hx of intestinal obstruction bowel obstruction removal surgery gastric surgery hx of surgical wound hx stragulated hernia Surgical History: Surgical History (Updated 08/29/18 @ 14:57 by Josi Miles DO) History of gastric surgery Hx of cholecystectomy Hx of hernia repair Hx of tubal ligation Family History: Family History (Updated 08/03/18 @ 18:54 by Marissa Waters RN) Other Adopted Social History: (Last Reviewed 03/02/19 @ 15:26 by Deya Cordova RN) Social History: adopted: Yes lives independently: Yes household members: family number of children: 2 parent marital status: current occupational status: unemployed Highest education level completed: some college, no degree Service: No Tobacco: Smoking Status: Current every day smoker tobacco type: cigarettes Smoking cigarettes per day: 10 Alcohol: alcohol intake: current Alcohol type: beer, wine alcohol intake frequency: holiday/special occasion details: couple shots of philip allen a couple times a year Substance Use: substance use type: does not use Exercise: Physical activity type: other Physical Exam - Physical Exam General Appearance: Present: moderate distress, anxious Head Exam: Present: normal inspection, no evidence of injury Eye Exam: Normal inspection: bilateral, PERRL: bilateral, EOMI: bilateral Ears, Nose, Throat: Present: normal ENT inspection, normal pharynx Neck: Present: normal inspection, nontender Respiratory: Present: no respiratory distress, normal breath sounds, no accessory muscle use, chest nontender, lungs clear Cardiovascular/Chest: Present: regular rate, rhythm, no murmur, normal peripheral pulses Gastrointestinal/Abdominal: Present: tenderness, abnormal bowel sounds, distended Back Exam: Present: normal inspection, normal range of motion, no CVA tenderness, no vertebral tenderness Extremity Exam: Present: normal inspection, non-tender, normal range of motion, no edema Neurological Exam: Present: alert, oriented, normal mood/affect, no motor/se nsory deficits Skin Exam: Present: normal color, warm/dry Lymphatic Exam: Present: no adenopathy Progress - Results and Orders Patient's Lab Results:: I have reviewed the patient's lab results. - Vital Signs Patient's Vital Signs:: I have reviewed the patient's vital signs. Vital Signs: Vital Signs 03/02/19 15:21 Temperature 36.4 C Pulse Rate 120 H Respiratory Rate 15 Blood Pressure 151/97 H O2 Sat by Pulse Oximetry 99 - Progress/Reassessment Chief Complaint: Rectal Bleeding Progress:: Unchanged - Transfer of Care Physician Sign Out: Reji Betancourt Receiving Physician: Femi Key Expected Disposition: Admit Plan - Plan Plan: to admit Departure Clinical Impression: Crohn's disease of ileum with rectal bleeding Abdominal pain Qualifiers: Abdominal location: right lower quadrant Qualified Code(s): R10.31 - Right lower quadrant pain Vomiting Qualifiers: Vomiting type: unspecified Vomiting Intractability: intractable Nausea presence: with nausea Qualified Code(s): R11.2 - Nausea with vomiting, unspecified - Departure Disposition: Still a patient Condition: Fair <Femi Key - Last Filed: 03/03/19 02:51> GI Bleeding/Rectal Pain ER Immunizations: IMMUNIZATION HX Immunizations Up to Date Yes History of Influenza Vaccine Yes Hx Pneumococcal Vaccination No Medical History (Updated 03/03/19 @ 00:42 by Femi Key DO) History of staph infection Hx of Crohn's disease Hx of intestinal obstruction bowel obstruction removal surgery gastric surgery hx of surgical wound hx stragulated hernia Surgical History: Surgical History (Updated 08/29/18 @ 14:57 by Josi Miles DO) History of gastric surgery Hx of cholecystectomy Hx of hernia repair Hx of tubal ligation Family History: Family History (Updated 08/03/18 @ 18:54 by Marissa Waters RN) Other Adopted Social History: (Last Updated 03/03/19 @ 02:14 by Mary Cuellar RN) Social History: adopted: Yes lives independently: Yes household members: family number of children: 5 caregiver/support person: Yes caregiver/support person comment: sister Gema Box parent marital status: current occupational status: unemployed Highest education level completed: some college, no degree Service: No Tobacco: Smoking Status: Current every day smoker tobacco type: cigarettes Smoking cigarettes per day: 10 Alcohol: alcohol intake: current Alcohol type: beer, wine alcohol intake frequency: holiday/special occasion details: couple shots of philip allen a couple times a year Substance Use: substance use type: does not use Exercise: Physical activity type: other Physical Exam - Physical Exam General Appearance: Present: moderate distress Head Exam: Present: normal inspection Respiratory: Present: no respiratory distress, no accessory muscle use Gastrointestinal/Abdominal: Present: tenderness - diffuse Extremity Exam: Present: normal inspection, normal range of motion, no edema Neurological Exam: Present: alert, oriented, normal mood/affect Skin Exam: Present: normal color, warm/dry Progress - Results and Orders Patient's Lab Results:: I have reviewed the patient's lab results. - Vital Signs Patient's Vital Signs:: I have reviewed the patient's vital signs. Vital Signs: Vital Signs 03/02/19 15:21 03/02/19 17:19 03/02/19 21:05 Temperature 36.4 C 36.3 C Pulse Rate 120 H 108 H 97 Respiratory Rate 15 16 18 Blood Pressure 151/97 H 174/92 H 151/89 H O2 Sat by Pulse Oximetry 99 96 99 - X-Ray X-Ray #1 X-Ray: abdomen Interpretation: Reviewed by me X-ray Comments: IMPRESSION: 1. Abnormal bowel gas pattern suggestive of small bowel obstruction. 2. Additional comments are as above. Electronically signed by Kannan Alvarez M.D. - CT/Ultrasound CT/Ultrasound Narrative: CT abdomen and pelvis with oral but without IV contrast: IMPRESSION: Prior right hemicolectomy. Bowel wall thickening and adjacent inflammatory changes and free fluid at loops of distal small bowel in the right abdomen. Findings are suggestive of enteritis which may be infectious, inflammatory or less likely ischemic in etiology. Recommend clinical correlation. No definite f luid collection visualized, however evaluation for fluid collections is limited given lack of intravenous contrast. Electronically signed by Anne-Marie Otero D.O.. - Progress/Reassessment Progress Note-Subjective: 03/02/19 21:14 Dr. Galaviz was here in the ED seeing a trauma patient. He relates that the patient has been seen here in the past and is not surgical at this time. 03/03/19 00:[address] Nguyen and he agrees with admission.
[2019-03-02] MEDS ORDERED: HYDROcodone/ACETAMINOPHEN 1 EACH TABLET PO ONE ×2 (16:31→17:26)
[2019-03-02 16:56] LABS: Anion Gap 24.1 mmol/L (6.8-13.8); BUN/Creatinine Ratio 9.7 (9.0-21.6); Blood Urea Nitrogen 6 mg/dL (3-23); Calcium * 9.6 mg/dL (7.9-10.9); Chloride 106 mmol/L (97-106); Glucose * 92 mg/dL (70-110); Potassium 4.1 mmol/L (3.4-4.6); Sodium 144 mmol/L (132-142)
[2019-03-02 16:57] LABS: Amylase * 26 U/L (25-115); Lipase 58 U/L (73-393)
[2019-03-02 17:12] LABS: Hematocrit 40.6 % (37.0-47.0); Hemoglobin 12.4 gm/dL (12.5-16.0); Mean Cell Volume 73.7 fl (78-100); Mean Corpuscular Hemoglobin 22.5 pg (27-31); Mean Corpuscular Hgb Conc 30.5 g/dl (32-36); Neutrophil # 5.2 K/mm3 (1.3-6.0); Neutrophil % 69.5 % (42-75.0); Red Blood Count 5.51 M/mm3 (4.2-5.4); Red Cell Distribution Width 21.4 % (11.5-14.0); White Blood Count 7.4 K/mm3 (4.0-10.5)
[2019-03-02 17:14] LABS: ALT 18 U/L (19-67); Albumin * 3.6 gm/dl (3.4-5.0); Bilirubin, Total 0.5 mg/dL (0.0-1.1); Ca. Corrected For Albumin 9.6 mg/dL (8.4-10.2); Platelet Count 318 K/mm3 (150-450); Total Protein 8.2 gm/dL (6.2-8.2)
[2019-03-02 17:15] LABS: AST 66 U/L (0-48); Alkaline Phosphatase * 96 U/L (50-170)
[2019-03-02] MEDS ORDERED: DIATRIZOATE MEGLUMINE, SODIUM 30 ML BTL PO ONE (17:23)
[2019-03-02] MEDS ORDERED: PROCHLORPERAZINE EDISYLATE 5 MG/ML VIAL IV ONE (18:14)
[2019-03-02] MEDS ORDERED: diphenhydrAMINE HCL 50 MG/ML VIAL IV ONE (18:18)
[2019-03-02] MEDS ORDERED: chlorproMAZINE HCL 10 MG in NORMAL SALINE 50 ML IV ONE (20:29)
[2019-03-02] MEDS ORDERED: ACETAMINOPHEN 1,000 MG/100 ML BTL IV ONE (21:16)
[2019-03-03] MEDS ORDERED: chlorproMAZINE HCL 10 MG in NORMAL SALINE 50 ML IV PRN (00:56)
[2019-03-03] MEDS ORDERED: CIPROFLOXACIN IN 5 % DEXTROSE 200 MG/100 ML BAG IV SCH (01:00)
[2019-03-03] MEDS ORDERED: metroNIDAZOLE/SODIUM CHLORIDE 500 MG/100 ML BAG IV SCH (01:00)
[2019-03-03] MEDS ORDERED: METHYLPREDNISOLONE SOD SUCC/PF 125 MG/2 ML VIAL IV ONE (01:01)
[2019-03-03] MEDS: NALBUPHINE HCL 20 MG/ML AMPUL IV PRN ×2 (01:15→04:32)
[2019-03-03] MEDS: NORMAL SALINE 1,000 ML IV PRN ×2 (04:29→17:00)
[2019-03-03] MEDS ORDERED: NALBUPHINE HCL 10 MG/ML AMPUL IV PRN (07:30)
[2019-03-03] MEDS ORDERED: ACETAMINOPHEN 1,000 MG/100 ML BTL IV PRN (07:50)
[2019-03-03] MEDS: NALBUPHINE HCL 10 MG/ML AMPUL IV PRN ×2 (07:56→16:20)
[2019-03-03] MEDS ORDERED: PARoxetine HCL 20 MG TABLET PO SCH ×2 (09:00→17:00)
[2019-03-03] MEDS: ENOXAPARIN SODIUM 40 MG/0.4 ML SYRG SC SCH (09:13)
[2019-03-03] MEDS: OLANZapine 5 MG TABLET PO SCH (09:27)
[2019-03-03 09:28] LABS: Hematocrit 36.3 % (37.0-47.0); Hemoglobin 11.3 gm/dL (12.5-16.0); Mean Cell Volume 72.9 fl (78-100); Mean Corpuscular Hemoglobin 22.7 pg (27-31); Mean Corpuscular Hgb Conc 31.1 g/dl (32-36); Mean Platelet Volume 10.4 fl (8-12.5); Platelet Count 284 K/mm3 (150-450); Red Blood Count 4.98 M/mm3 (4.2-5.4); Red Cell Distribution Width 20.4 % (11.5-14.0); White Blood Count 3.5 K/mm3 (4.0-10.5)
[2019-03-03 09:30] LABS: Total Cells Counted 100
[2019-03-03 09:39] LABS: Basophil 1 % (0-1); Eosinophil 1 % (0-3); Lymphocyte 15 % (20-51); Macrocytosis 1+; Microcytosis 2+; Monocyte 2 % (0-9); Neutrophil 81 % (42-75); Neutrophil # 2.8 K/mm3 (1.3-6.0); Platelet Estimate Normal (NORMAL); Target Cells 1+
[2019-03-03 09:40] LABS: Dohle Bodies 2+; Toxic Granulation 1+
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
[2019-03-04] MEDS: NALBUPHINE HCL 10 MG/ML AMPUL IV PRN ×2 (01:11→09:13)
[2019-03-04] MEDS: NORMAL SALINE 1,000 ML IV PRN (04:03)
--- NOTE | 2019-03-04 08:35 | DS ---
(1) Abdominal pain Problem: Resolved Date of Discharge:: 03/04/19 Description of Stay: There is a 38-year-old female admitted secondary to abdominal pain with concern for Crohn's flare up versus GI bleed. Work-up completed and patient is stable and no concern for flareup in regards to Crohn's disease or an upper GI bleed. Patient has a significant past medical history of being seen in several hospitals in different state such as [facility] in [place] and I will for similar complaints in regards to abdominal pain due to Crohn's disease. Obtained discharge summary from [facility] completed on February 20, [address] Barry Figueroa.. This patient has been hospitalized multiple times and received various invasive diagnostic procedures and surgeries in the past 1 year. Multiple consultations have been done and work-up is been inconsistent for Crohn's disease it alone Crohn's flare. No history of patient having any GI bleed at different hospitalizations nursing staff have not observed symptoms reported by the patient, which is very similar with the current hospitalization. Patient has refused lab draws and all medication with exception of pain medication. High concern for pain seeking disorder. On review of other discharge summaries there is concern for chronic abdominal pain versus mood disorder and possible somatic symptom disorder. Patient does get very upset and aggressive when she decided to discharge her. However explained to patient all possible work-up has been completed and she is currently stable and does not meet criteria to be hospitalized and therefore will be discharged. Patient to continue following up with PCP, Dr. Merino as scheduled on March 10, 2019. Patient is requesting for food and to be discharged at 3 PM so she can have transportation. Otherwise she does not acknowledge any of my recommendations. Procedures Performed: none Results and Findings: Lab Pending Results 03/02/19 15:38: Urine HCG, Qual Negative 03/02/19 15:45: Urine Color Yellow, Urine Appearance Cloudy, Urine pH 5.5, Ur Specific [place] >=1.030, Urine Protein 15 H, Urine Glucose (UA) Negative, Urine Ketones Negative, Urine Blood Negative, Urine Nitrate Negative, Urine Bilirubin 1 H, Urine Ictotest Negative, Prot Sulfosalicylic Acd Negative, Urine Urobilinogen Normal, Ur Leukocyte Esterase Negative, Urine RBC None seen, Urine WBC None seen, Ur Epithelial Cells 10-25 H, Urine Bacteria 1+ H, Urine Culture Comments No culture indicated 03/02/19 15:45: Urine Opiates Screen Negative, Barbiturate Screen Negative, Ur Phencyclidine Scrn Negative, Urine Amphetamine Negative, U Benzodiazepines Scrn Negative, Urine Cocaine Screen Negative, Urine Marijuana (THC) Negative 03/02/19 16:45: WBC 7.4, RBC 5.51 H, Hgb 12.4 L, Hct 40.6, MCV 73.7 L, MCH 22.5 L, MCHC 30.5 L, RDW 21.4 H, Plt Count 318, MPV 10.0, Immature Gran % (Auto) 0.80 H, Immature Gran # (Auto) 0.06 H, Neutrophils % 69.5, Lymphocytes % 16.8 L, Monocytes % 10.6 H, Eosinophils % 1.5, Basophils % 0.8, Nucleated RBC % 0.0, Neutrophils # 5.2, Lymphocytes # 1.25 L, Monocytes # 0.8, Eosinophils # 0.1, Absolute Basophils 0.1 03/02/19 16:45: Sodium 144 H, Plasma Sodium 144 H, Potassium 4.1, Chloride 106, Carbon Dioxide 18.0 L, Anion Gap 24.1 H, BUN 6, Creatinine 0.62, Est GFR (Non-Af Amer) 115, BUN/Creatinine Ratio 9.7, Random Glucose 92, Calcium 9.6, Calcium Adj for Albumin 9.6, Total Bilirubin 0.5, AST 66 H, ALT 18 L, Alkaline Phosphatase 96, Total Protein 8.2, Albumin 3.6, Amylase 26, Lipase 58 L, TSH 0.080 L, Ethyl Alcohol Less than 3.0 03/02/19 17:00: C-Reactive Prot, Quant Less than 0.2 03/03/19 09:19: WBC 3.5 L D, RBC 4.98, Hgb 11.3 L, Hct 36.3 L, MCV 72.9 L, MCH 22.7 L, MCHC 31.1 L, RDW 20.4 H, Plt Count 284, MPV 10.4, Neutrophils % (Manual) 81 H, Lymphocytes % (Manual) 15 L, Monocytes % (Manual) 2, Eosinophils % (Manual) 1, Basophils % (Manual) 1, Neutrophils # (Manual) 2.8, Lymphocytes # (Manual) 0.5 L, Monocytes # (Manual) 0.1, Eosinophils # (Manual) 0.0, Basophils # (Manual) 0.0, Toxic Granulation 1+, Toxic Vacuolation 1+, Dohle Bodies 2+, Platelet Estimate Normal, Microcytosis 2+, Macrocytosis 1+, Target Cells 1+ Discharge Location: Home Disposition: Home self-care Condition: Good Discharge Activity: Activity as tolerated Discharge Diet: General/regular food Referrals: Celestino Lino MD [Primary Care Provider] - Problem Oriented Discharge Instructions to Patient/Family: Nausea, Adult Print Language (Finnish or Romansh Available): Finnish Additional Patient Instructions (free text): Follow up with Dr Merino as scheduled on March 10, 2019. Patient has appointment card with time Complete Home Medications List: Complete Home Medication List: chlorpromazine 25 mg tablet 25 mg PO Q4H PRN #100 tab 12/09/18 esomeprazole magnesium 20 mg capsule,delayed release 20 mg PO DAILY #30 cap 12/09/18 zolpidem 10 mg tablet 10 mg PO HS PRN #30 tab 12/09/18 Acetaminophen [Tylenol] 975 mg PO PRN PRN 02/09/19 ondansetron HCl 4 mg tablet 4 mg PO QD-BID PRN #15 tab 02/23/19 Diclofenac Sodium [Voltaren] 1 gm TOPICAL BID #100 gel..gram. 03/01/19 HYDROcodone/ACETAMINOPHEN [[place] 5-325 Tablet] 1 tab PO Q6H 03/03/19
[2019-03-04] MEDS: ENOXAPARIN SODIUM 40 MG/0.4 ML SYRG SC SCH (09:00)
[2019-03-04] MEDS: OLANZapine 5 MG TABLET PO SCH (09:01)
[2019-03-04 16:55] VITALS: BP 115/74
== END 2019-03-04 14:30 | disposition home or self-care (01) ==
LOC: MS 15:07 → ER 15:07 → MS 03-03 01:35
PROVIDERS: ADMIT Family Medicine; ATTEND Allergy & Immunology
DX: R10.9 Unspecified abdominal pain
CPT/HCPCS: 36415; 74019; 74020; 74176; 80050; 80307; 80320; 81001; 82150; 83690; 84703; 85025; 86140; 96365; 96367; 96375; 99285; G0378; G0481; J0131; J2405; Q9963